=== PATIENT | male | born 1980 | race American Indian/Alaskan Native ===

== ENCOUNTER 2021-08-26 02:48 | Emergency (ER) | payer SELFPAY ==
--- NOTE | 2021-08-26 07:49 | Emergency Department Report ---
ED Asthma HPI - General Chief Complaint: Adult Asthma Stated Complaint: HEADACHE,CHEST PAIN Time Seen by Provider: 08/26/21 07:41 Source: patient Mode of arrival: Ambulatory Limitations: No Limitations - History of Present Illness Initial Comments: 41-year-old male who reports a past medical history of asthma and schizophrenia presents to the ER today with concern that his asthma is flaring up. Patient states that he has been out of his halo for a while. He reports nonproductive cough. He reports subjective fever. He denies any wheezing, shortness of breath, rhinorrhea, or nasal congestion. He stated complaint mentioned headache and chest pain but patient denies any pain currently. He states that his never been admitted for his asthma in the past. Patient states that he just wants a refill on his albuterol inhaler so he can go home and sleep. MD Complaint: "asthma attack" -: days(s) - Related Data Previous Rx's Medication Instructions Recorded Last Taken Type Albuterol Mdi (or & Nicu Only) 2 puff IH QID PRN #8.5 gram 08/26/21 Unknown Rx [ProAir HFA Inhaler] Allergies Allergy/AdvReac Type Severity Reaction Status Date / Time No Known Allergies Allergy Verified 08/26/21 05:16 ED Review of Systems ROS: Stated complaint: HEADACHE,CHEST PAIN Other details as noted in HPI Comment: All other systems reviewed and negative Constitutional: fever (Subjective) Eyes: denies: eye pain, eye discharge, vision change ENT: as per HPI Respiratory: cough. denies: shortness of breath, SOB with exertion, SOB at rest, wheezing Cardiovascular: denies: chest pain, palpitations, dyspnea on exertion, edema, syncope, paroxysmal nocturnal dyspnea Gastrointestinal: denies: abdominal pain, nausea, diarrhea Genitourinary: denies: urgency, dysuria, frequency, hematuria, discharge, testicular pain, testicular mass Musculoskeletal: denies: back pain, joint swelling, arthralgia Skin: denies: rash, lesions, change in color, change in hair/nails, pruritus Neurological: denies: headache, weakness, numbness, paresthesias, confusion, abnormal gait, vertigo Psychiatric: denies: anxiety, depression, auditory hallucinations, visual hallucinations, homicidal thoughts, suicidal thoughts Hematological/Lymphatic: denies: easy bleeding, easy bruising, swollen glands ED Past Medical Hx - Past Medical History Hx Asthma: Yes - Surgical History Past Surgical History?: No - Medications Home Medications: Home Medications Medication Instructions Recorded Confirmed Last Taken Type Albuterol Mdi (or & Nicu Only) 2 puff IH QID PRN #8.5 gram 08/26/21 Unknown Rx [ProAir HFA Inhaler] ED Physical Exam - General Limitations: No Limitations General appearance: alert, in no apparent distress - Head Head exam: Present: atraumatic, normocephalic, normal inspection - Eye Eye exam: Present: normal appearance, PERRL, EOMI Pupils: Present: normal accommodation - Neck Neck exam: Present: normal inspection, full ROM. Absent: meningismus - Respiratory Respiratory exam: Present: normal lung sounds bilaterally. Absent: respiratory distress, wheezes, rales, rhonchi - Cardiovascular Cardiovascular Exam: Present: regular rate, normal rhythm, normal heart sounds - GI/Abdominal GI/Abdominal exam: Present: soft. Absent: distended, tenderness, guarding, rebound - Neurological Exam Neurological exam: Present: alert, oriented X3, CN II-XII intact - Psychiatric Psychiatric exam: Present: normal mood, flat affect - Skin Skin exam: Present: intact ED Course Vital Signs 08/26/21 05:16 Temperature 98.7 F Pulse Rate 103 H Respiratory 17 Rate Blood Pressure 117/59 [Right] O2 Sat by Pulse 100 Oximetry ED Medical Decision Making - Medical Decision Making 41-year-old male who reports a past medical history of asthma and schizophrenia presents to the ER today with concern that his asthma is flaring up. Patient states that he has been out of his halo for a while. He reports nonproductive cough. He reports subjective fever. He denies any wheezing, shortness of breath, rhinorrhea, or nasal congestion. He stated complaint mentioned headache and chest pain but patient denies any pain currently. He states that his never been admitted for his asthma in the past. Patient states that he just wants a refill on his albuterol inhaler so he can go home and sleep. 0758: Patient is well-appearing, nontoxic and not in any acute pain or respiratory distress. His chest is clear to auscultation. He is neurologically intact with a normal gait. He is hemodynamically stable. His vital signs are stable. Patient will be given a refill on his albuterol MDI. Recommend that he stop smoking. Patient will be given referral information to PCP. Patient expressed understanding of all instructions and agree with plan. Patient stable at time of discharge. Critical care attestation.: If time is entered above; I have spent that time in minutes in the direct care of this critically ill patient, excluding procedure time. ED Disposition Clinical Impression: Asthma, Medication refill Disposition: HOME / SELF CARE / HOMELESS Is pt being admited?: No Does the pt Need Aspirin: No Condition: Stable Instructions: Asthma, Adult, Asthma (ED) Additional Instructions: I recommend that you try to stop smoking. Use your albuterol inhaler as prescribed. Follow-up with your primary care doctor. Return to the ER symptoms worsens or changes in any way. Prescriptions: Albuterol Mdi (or & Nicu Only) [ProAir HFA Inhaler] 2 puff IH QID PRN #8.5 gram PRN Reason: Shortness Of Breath Referrals: [facility] [Provider Group] - 3-5 Days Time of Disposition: 07:54
[2021-08-26 08:18] VITALS: BP 111/66
== END 2021-08-26 08:18 | disposition home or self-care (01) ==
LOC: ED 02:48
DX: J45.909 Unspecified asthma, uncomplicated (principal)
CPT/HCPCS: 99282

== ENCOUNTER 2021-09-05 05:28 | Emergency (ER) | payer MEDICAID ==
[2021-09-05 05:36] VITALS: BP 115/71
== END 2021-09-05 19:16 | disposition left against medical advice (07) ==
LOC: ED 05:28
DX: R07.9 Chest pain, unspecified (principal); Z53.21 Procedure and treatment not carried out due to patient leaving prior to being seen by health care provider

== ENCOUNTER 2021-09-09 21:25 | Emergency (ER) | payer SELFPAY ==
[2021-09-10] MEDS ORDERED: ACETAMINOPHEN 500 MG TAB PO ONE (03:22)
--- NOTE | 2021-09-10 03:45 | Emergency Department Report ---
ED General Adult HPI - General Chief complaint: Medical Clearance Stated complaint: medical Source: EMS Mode of arrival: Stretcher Limitations: No Limitations - History of Present Illness Initial comments: Patient is a 41-year-old -[place] male with a history of asthma and who is homeless, and who presented to the ED with complaint of headache for the last 8 hours. Patient states that he has not taken any medication for the headache. Patient denies head or neck injuries, dizziness, syncope, fever, chills, cough, nasal and sinus congestion, change in vision, nausea and vomiting, abdominal pain, chest pain or shortness of breath. MD Complaint: headache -: Sudden, hour(s) (8) Location: head Radiation: non-radiation Severity scale (0 -10): 1 Quality: dull Consistency: constant Improves with: none Worsens with: none Associated Symptoms: denies other symptoms, headaches. denies: confusion, chest pain, cough, diaphoresis, fever/chills, loss of appetite, malaise, nausea/vomiting, rash, seizure, shortness of breath, syncope, weakness Treatments Prior to Arrival: none - Related Data Previous Rx's Medication Instructions Recorded Last Taken Type Albuterol Mdi (or & Nicu Only) 2 puff IH QID PRN #8.5 gram 08/26/21 Unknown Rx [ProAir HFA Inhaler] Ibuprofen [Motrin] 600 mg PO Q8H PRN #20 tablet 09/10/21 Unknown Rx Allergies Allergy/AdvReac Type Severity Reaction Status Date / Time No Known Allergies Allergy Verified 08/26/21 05:16 ED Review of Systems ROS: Stated complaint: medical Other details as noted in HPI Constitutional: denies: chills, fever Eyes: denies: eye pain, eye discharge, vision change ENT: denies: ear pain, throat pain Respiratory: denies: cough, shortness of breath, wheezing Cardiovascular: denies: chest pain, palpitations Endocrine: no symptoms reported Gastrointestinal: denies: abdominal pain, nausea, diarrhea Genitourinary: denies: urgency, dysuria Musculoskeletal: denies: back pain, joint swelling, arthralgia Skin: denies: rash, lesions Neurological: headache. denies: weakness, paresthesias Psychiatric: denies: anxiety, depression Hematological/Lymphatic: denies: easy bleeding, easy bruising ED Past Medical Hx - Past Medical History Hx Asthma: Yes - Medications Home Medications: Home Medications Medication Instructions Recorded Confirmed Last Taken Type Albuterol Mdi (or & Nicu Only) 2 puff IH QID PRN #8.5 gram 08/26/21 Unknown Rx [ProAir HFA Inhaler] Ibuprofen [Motrin] 600 mg PO Q8H PRN #20 tablet 09/10/21 Unknown Rx ED Physical Exam - General Limitations: No Limitations General appearance: alert, in no apparent distress - Head Head exam: Present: atraumatic, normocephalic, normal inspection - Eye Eye exam: Present: normal appearance, PERRL, EOMI Pupils: Present: normal accommodation - ENT ENT exam: Present: normal exam, normal orophraynx, mucous membranes moist, TM's normal bilaterally, normal external ear exam - Neck Neck exam: Present: normal inspection, full ROM - Respiratory Respiratory exam: Present: normal lung sounds bilaterally. Absent: respiratory distress, wheezes, rales, rhonchi, chest wall tenderness, accessory muscle use, decreased breath sounds, prolonged expiratory - Cardiovascular Cardiovascular Exam: Present: regular rate, normal rhythm, normal heart sounds. Absent: systolic murmur, diastolic murmur, rubs, gallop - GI/Abdominal GI/Abdominal exam: Present: soft, normal bowel sounds. Absent: tenderness, guarding, rebound, hyperactive bowel sounds, hypoactive bowel sounds, organomegaly - Extremities Exam Extremities exam: Present: normal inspection, full ROM, normal capillary refill - Back Exam Back exam: Present: normal inspection, full ROM. Absent: tenderness, CVA tenderness (R), CVA tenderness (L), muscle spasm, paraspinal tenderness, vertebral tenderness - Neurological Exam Neurological exam: Present: alert, oriented X3, CN II-XII intact, normal gait, reflexes normal - Psychiatric Psychiatric exam: Present: normal affect, normal mood - Skin Skin exam: Present: warm, dry, intact, normal color. Absent: rash ED Course Vital Signs 09/09/21 21:25 Temperature 98.9 F Pulse Rate 99 H Respiratory 18 Rate Blood Pressure 140/81 [Right] O2 Sat by Pulse 100 Oximetry ED Medical Decision Making - Medical Decision Making This is a 41-year-old -[place] male with a history of asthma and who is homeless, and who presented to the ED with complaint of headache for the last 8 hours. Patient states that he has not taken any medication for the headache. In the ED, patient is alert and oriented x3 and is not in any distress. Patient is hemodynamically stable. Patient was treated in the ED for headache with Tylenol. On reevaluation, patient's headache is resolved. Patient was discharged home and advised to follow-up with his primary care physician in 7 to 10 days for reevaluation or return to the ED immediately if symptoms get worse. - Differential Diagnosis Tension headache; cluster headache; anxiety; insomnia Critical care attestation.: If time is entered above; I have spent that time in minutes in the direct care of this critically ill patient, excluding procedure time. ED Disposition Clinical Impression: Tension headache Disposition: 01 HOME / SELF CARE / HOMELESS Is pt being admited?: No Does the pt Need Aspirin: No Condition: Stable Instructions: Tension Headache, Adult, [id number] Additional Instructions: Follow-up with your primary care physician as needed. Return to the ED immediately if symptoms get worse. Prescriptions: Ibuprofen [Motrin] 600 mg PO Q8H PRN #20 tablet PRN Reason: Pain Referrals: [facility] [Provider Group] - 3-5 Days Time of Disposition: 03:45 Print Language: ROMANIAN
[2021-09-10 04:58] VITALS: BP 136/78
== END 2021-09-10 04:58 | disposition home or self-care (01) ==
LOC: ED 21:25
DX: G44.209 Tension-type headache, unspecified, not intractable (principal); J45.909 Unspecified asthma, uncomplicated
CPT/HCPCS: 99283

== ENCOUNTER 2021-09-16 12:50 | Inpatient (IN) | payer OTHER ==
[~2021-09-16 12:50] MED LIST: LORazepam 2 MG/ML VIAL IV ONE
[2021-09-16] MEDS ORDERED: LORazepam 2 MG/ML VIAL ONE ×3 (12:53→16:05)
[2021-09-16] MEDS ORDERED: LORazepam 2 MG/ML VIAL IV ONE ×2 (13:02→16:18)
[2021-09-16] MEDS ORDERED: FOSPHENYTOIN 500 MG PE/10 ML INJ IV ONE (13:05)
[2021-09-16] MEDS ORDERED: SODIUM CHLORIDE 0.9% 1000 ML 1,000 ML IV ONE ×3 (13:06→21:36)
[2021-09-16] MEDS ORDERED: SUCCINYLCHOLINE CHLORIDE 200 MG/10 ML INJ MDV ONE (13:13)
[2021-09-16] MEDS ORDERED: ETOMIDATE 20 MG/10 ML INJ IV ONE (13:13)
[2021-09-16] MEDS ORDERED: LIP THERAPY VASELINE TP PRN (13:23)
[2021-09-16] MEDS ORDERED: MINERAL OIL/PETROLATUM, WHITE OPHTH OINT 3.5 GM OU PRN (13:23)
--- NOTE | 2021-09-16 13:28 | Emergency Department Report ---
HPI - General Chief Complaint: Seizure Time Seen by Provider: 09/16/21 13:05 - HPI HPI: 41-year-old -[place] male presents to the emergency department via EMS from long-term after having witnessed seizures. The patient had multiple witnessed seizures at the long-term and was given 20 mg of Valium. He had another seizure in route with EMS and received 2 mg of Ativan intranasally. The patient once again began having witnessed seizures upon presentation to our emergency department. Patient was seen here about 6 days ago with a complaint of a headache and the report from that day says that he has a past medical history of asthma. He was ultimately discharged with the diagnosis of a tension headache. EMS says that it was unknown if the patient had any trauma before incarceration or in long-term, but they noticed some bruising to the forehead. I am not sure that we have the full scope of the patient's past medical history as he has a scar in his neck showing previous tracheostomy and also a healed wound to the abdomen that appears consistent with a previous PEG tube. This patient had multiple recurrent seizures while in the emergency department. He received 2 different doses of 2 mg of Ativan, and a gram of Keppra. His oxygen saturation has remained at about 92% while on a nonrebreather but he has tachypnea and accessory muscle use and a low GCS. The patient has been intubated for protection of airway. ED Past Medical Hx - Past Medical History Hx Asthma: Yes - Medications Home Medications: Home Medications Medication Instructions Recorded Confirmed Last Taken Type Albuterol Mdi (or & Nicu Only) 2 puff IH QID PRN #8.5 gram 08/26/21 Unknown Rx [ProAir HFA Inhaler] Ibuprofen [Motrin] 600 mg PO Q8H PRN #20 tablet 09/10/21 Unknown Rx ED Review of Systems ROS: Stated complaint: SEIZURES Other details as noted in HPI Comment: Unobtainable due to pts medical conditions Physical Exam - Physical Exam Physical Exam: GENERAL: The patient is ill-appearing and unresponsive. Patient is seen having recurrent seizure-like activity. HENT: Normocephalic. Atraumatic. Patient has moist mucous membranes. EYES: Pupils are round and equal bilaterally. NECK: Supple. Trachea is midline. CHEST/LUNGS: Clear to auscultation. There is shallow respirations with bradypnea. HEART/CARDIOVASCULAR: Regular. There is moderate to severe tachycardia. There is no murmur. ABDOMEN: Abdomen is soft, nontender. Patient has normal bowel sounds. There is no abdominal distention. SKIN: Skin is warm and dry. NEURO: Patient is mostly unresponsive except to painful stimuli. Nonverbal. Not following commands. The patient is seen having recurrent seizure-like activity. MUSCULOSKELETAL: There is no obvious deformity. - ABG Interpretation Ph: 7.311 PCO2: 34 PO2: 97 Bicarbonate: 16.8 Interpretation: respiratory alkalosis, metabolic acidosis - Central Line Placement Right Femoral Consent Obtained: emergent situation Time Out Performed: Yes Patient Placed on Monitor/Pulse Ox: Yes MD Prep: mask, gown, gloves Central Line Prep: Chlorhexidine scrub Ultrasound Used for Placement: Yes Central Line Lumen Inserted: triple Reason for Insertion: Emergency Venous Access Bloods Obtained for Lab: Yes Central Line Position: good blood return, all ports aspirated, flus, sutured in place with nyl Dressing Applied: Tegaderm Patient Tolerated Procedure: well Complications: none - Intubation Time Out Performed: Yes Sedative: Etomidate Mg Given: 20 Paralytic: Succinylcholine Mg Given: 80 Laryngoscope: other (Loami scope) Size: 4 ET Tube Size: 7.5 Tube Secured Depth (cm): 24 Tube Secured Location: lips Tube Placement Confirmation: visualized tube passing t, equal breath sounds bilat, no breath sounds over epi, confirmation by capnometr Patient Tolerated Procedure: well Intubation Complications: none - Lumbar Puncture Consent Obtained: emergent situation Time Out Performed: Yes Indication for Procedure: fever work up, change in mental status Patient Position: left lateral decubitus Local Anesthetic Used: Lidocaine 1% Spinal Needle Gauge: 20G Spinal Needle Length: 2in Interspace Used: L3-L4 Fluid Initially Obtained: clear Patient Tolerated Procedure: well Additional Comments: A few attempts were made in the L4-L5 space without success. I was unsuccessful in the L3-L4 space. The needle was removed and a Band-Aid was placed. The patient has been placed on his back. ED Medical Decision Making - Lab Data Result diagrams: 09/16/21 13:58 09/16/21 13:58 Lab Results 09/16/21 09/16/21 09/16/21 Range/Units 13:44 13:58 13:58 WBC 17.0 H (4.5-11.0) K/mm3 RBC 4.89 (3.65-5.03) M/mm3 Hgb 14.5 (11.8-15.2) gm/dl Hct 45.6 (35.5-45.6) % MCV 93 (84-94) fl MCH 30 (28-32) pg MCHC 32 (32-34) % RDW 13.1 L (13.2-15.2) % Plt Count 168 (140-440) K/mm3 Lymph % (Auto) 3.7 L (13.4-35.0) % Power % (Auto) 7.6 H (0.0-7.3) % Eos % (Auto) 0.0 (0.0-4.3) % Baso % (Auto) 0.1 (0.0-1.8) % Lymph # (Auto) 0.6 L (1.2-5.4) K/mm3 Power # (Auto) 1.3 H (0.0-0.8) K/mm3 Eos # (Auto) 0.0 (0.0-0.4) K/mm3 Baso # (Auto) 0.0 (0.0-0.1) K/mm3 Seg Neutrophils % 88.6 H (40.0-70.0) % Seg Neutrophils # 15.0 H (1.8-7.7) K/mm3 Sodium 149 H (137-145) mmol/L Potassium 4.8 (3.6-5.0) mmol/L Chloride 108.9 H (98-107) mmol/L Carbon Dioxide 13 L (22-30) mmol/L Anion Gap 32 mmol/L BUN 44 H (9-20) mg/dL Creatinine 1.7 H (0.8-1.3) mg/dL Estimated GFR 54 ml/min BUN/Creatinine Ratio 26 % Glucose 100 (75-100) mg/dL POC Glucose 86 (70-105) mg/dL Lactic Acid (0.7-2.0) mmol/L Calcium 9.5 (8.4-10.2) mg/dL Total Bilirubin 1.00 (0.1-1.2) mg/dL AST 66 H (5-40) units/L ALT 37 (7-56) units/L Alkaline Phosphatase 85 (35-129) units/L Ammonia (25-60) umol/L Total Creatine Kinase 2443 H (55-170) units/L Troponin T < 0.010 (0.00-0.029) ng/mL Total Protein 7.8 (6.3-8.2) g/dL Albumin 4.3 (3.9-5) g/dL Albumin/Globulin Ratio 1.2 % TSH (0.270-4.200) mlU/mL Salicylates (2.8-20.0) mg/dL Acetaminophen (10.0-30.0) ug/mL Plasma/Serum Alcohol (0-0.07) % 09/16/21 09/16/21 09/16/21 Range/Units 13:58 13:58 13:58 WBC (4.5-11.0) K/mm3 RBC (3.65-5.03) M/mm3 Hgb (11.8-15.2) gm/dl Hct (35.5-45.6) % MCV (84-94) fl MCH (28-32) pg MCHC (32-34) % RDW (13.2-15.2) % Plt Count (140-440) K/mm3 Lymph % (Auto) (13.4-35.0) % Power % (Auto) (0.0-7.3) % Eos % (Auto) (0.0-4.3) % Baso % (Auto) (0.0-1.8) % Lymph # (Auto) (1.2-5.4) K/mm3 Power # (Auto) (0.0-0.8) K/mm3 Eos # (Auto) (0.0-0.4) K/mm3 Baso # (Auto) (0.0-0.1) K/mm3 Seg Neutrophils % (40.0-70.0) % Seg Neutrophils # (1.8-7.7) K/mm3 Sodium (137-145) mmol/L Potassium (3.6-5.0) mmol/L Chloride (98-107) mmol/L Carbon Dioxide (22-30) mmol/L Anion Gap mmol/L BUN (9-20) mg/dL Creatinine (0.8-1.3) mg/dL Estimated GFR ml/min BUN/Creatinine Ratio % Glucose (75-100) mg/dL POC Glucose (70-105) mg/dL Lactic Acid (0.7-2.0) mmol/L Calcium (8.4-10.2) mg/dL Total Bilirubin (0.1-1.2) mg/dL AST (5-40) units/L ALT (7-56) units/L Alkaline Phosphatase (35-129) units/L Ammonia 22.0 L (25-60) umol/L Total Creatine Kinase (55-170) units/L Troponin T (0.00-0.029) ng/mL Total Protein (6.3-8.2) g/dL Albumin (3.9-5) g/dL Albumin/Globulin Ratio % TSH 0.062 L (0.270-4.200) mlU/mL Salicylates < 0.3 L (2.8-20.0) mg/dL Acetaminophen (10.0-30.0) ug/mL Plasma/Serum Alcohol (0-0.07) % 09/16/21 09/16/21 09/16/21 Range/Units 13:58 13:58 13:58 WBC (4.5-11.0) K/mm3 RBC (3.65-5.03) M/mm3 Hgb (11.8-15.2) gm/dl Hct (35.5-45.6) % MCV (84-94) fl MCH (28-32) pg MCHC (32-34) % RDW (13.2-15.2) % Plt Count (140-440) K/mm3 Lymph % (Auto) (13.4-35.0) % Power % (Auto) (0.0-7.3) % Eos % (Auto) (0.0-4.3) % Baso % (Auto) (0.0-1.8) % Lymph # (Auto) (1.2-5.4) K/mm3 Power # (Auto) (0.0-0.8) K/mm3 Eos # (Auto) (0.0-0.4) K/mm3 Baso # (Auto) (0.0-0.1) K/mm3 Seg Neutrophils % (40.0-70.0) % Seg Neutrophils # (1.8-7.7) K/mm3 Sodium (137-145) mmol/L Potassium (3.6-5.0) mmol/L Chloride (98-107) mmol/L Carbon Dioxide (22-30) mmol/L Anion Gap mmol/L BUN (9-20) mg/dL Creatinine (0.8-1.3) mg/dL Estimated GFR ml/min BUN/Creatinine Ratio % Glucose (75-100) mg/dL POC Glucose (70-105) mg/dL Lactic Acid 2.20 H* (0.7-2.0) mmol/L Calcium (8.4-10.2) mg/dL Total Bilirubin (0.1-1.2) mg/dL AST (5-40) units/L ALT (7-56) units/L Alkaline Phosphatase (35-129) units/L Ammonia (25-60) umol/L Total Creatine Kinase (55-170) units/L Troponin T (0.00-0.029) ng/mL Total Protein (6.3-8.2) g/dL Albumin (3.9-5) g/dL Albumin/Globulin Ratio % TSH (0.270-4.200) mlU/mL Salicylates (2.8-20.0) mg/dL Acetaminophen 5.0 L (10.0-30.0) ug/mL Plasma/Serum Alcohol < 0.01 (0-0.07) % - EKG Data -: EKG Interpreted by Me EKG shows normal: sinus rhythm, axis (Left axis deviation), intervals, QRS complexes, ST-T waves Rate: tachycardia (134 bpm) - EKG Data When compared to previous EKG there are: previous EKG unavailable Interpretation: other (Sinus tachycardia 134 bpm, left axis deviation. No ST elevation HI) - Radiology Data Radiology results: report reviewed, image reviewed interpreted by me: Chest x-ray does not show any acute process. There are no pleural effusions, obvious pneumonia and there is no pneumothorax. CT CERVICAL SPINE: 09/16/2021 INDICATION / CLINICAL INFORMATION: Trauma. COMPARISON: None available. FINDINGS: CT images of the cervical spine were obtained. Images are evaluated in the axial, coronal, and sagittal planes. There is no evidence of acute traumatic injury. There is mild reversal of cervical lordosis centered at the C4-5 level with the patient positioned for this exam. body alignment is otherwise unremarkable. Patient is noted to have an endotracheal tube and nasogastric tube present. The cervical position is unremarkable. The distal tip of these tubes is not included on this exam. CRANIOCERVICAL JUNCTION: Unremarkable. PARASPINAL STRUCTURES: Unremarkable IMPRESSION: No acute abnormality FACIAL CT 09/16/2021 HISTORY: Trauma. FINDINGS: CT images of the facial bones were obtained. Images are evaluated in the axial, coronal, and sagittal plane. There is no evidence of acute osseous abnormality. There is mucosal thickening and layering secretions in the left maxillary sinus. There is prominent mucosal thickening and secretions in the posterior nasopharynx, which appears to be obstructed. Endotracheal tube and nasogastric tube are in place. Right frontal bone and supraorbital postoperative changes are present. IMPRESSION: No evidence of acute osseous injury. CT BRAIN: 09/16/2021 INDICATION / CLINICAL INFORMATION: Trauma. COMPARISON: None available. FINDINGS: BRAIN/INTRACRANIAL STRUCTURES: Unenhanced CT images of the brain were obtained. No previous studies are available here for comparison. There is no evidence of acute abnormality. There is evidence of prior right frontal surgery, with postoperative changes present in the right frontal and supraorbital calvarium, with associated prominent encephalomalacia in the right frontal lobe. A right frontal shunt tube is present. Lateral and third ventricles are somewhat prominent in size. There is no evidence of acute traumatic injury. There is no evidence of hemorrhage. There are no abnormal extra-axial fluid collections. - Medical Decision Making This patient had somewhat to seizure-like activity in long-term. He was given 20 mg of Valium without resolution of the seizures. EMS then witnessed him having 1-2 seizures in route. Upon presentation patient continued to have short but recurrent seizure-like activity. He was given 2 mg of Ativan with EMS. He then received a total of 4 mg of Ativan in the emergency department, followed by a gram of Keppra, before the seizure started to slow down. He had a significant postictal period with a GCS of 7, and shallow bradypnea respirations. For this reason the patient was intubated as per the procedure section. Shortly after the patient was intubated, I placed a central line as we did not have very good peripheral IV access and the patient was going to receive multiple medications and require multiple blood draws. This was done without any significant complications as per the procedure section. CT scan of the head without contrast shows ventriculomegaly, but otherwise no hemorrhage, large vessel occlusion, extra-axial fluid collection, or any acute process. CT scan of the cervical spine did not show any fracture, subluxation, or any acute process. CT of the facial bones did not show any fracture, dislocation, or any acute process. Chest x-ray does not show any pneumonia, pleural effusions, pneumothorax, widened mediastinum, or any other acute process. Labs show a leukocytosis of 17,000, lactic acidosis, hypernatremia, mild renal insufficiency, dehydration, mild rhabdomyolysis, and elevated inflammatory markers concerning for COVID-19 infection. This patient was here 1 time previously, about 10 days ago, for a tension headache. He was awake, alert, oriented at that time and did not have any known history of seizures. He presented with a low-grade fever of 100.7. For this reason, along with the leukocytosis, a lumbar puncture was performed. It was negative for cryptococcus. Cell count could still show a viral meningitis, but it does not appear consistent with a bacterial meningitis. CSF culture preliminarily does not show any organisms. Prior to the LP, the patient was empirically treated with ceftriaxone, vancomycin. Patient had 1 more episode of seizures while in the emergency department and he was given another dose of Ativan and fosphenytoin. Patient will be admitted to the hospital for further evaluation and treatment and was accepted for admission by the hospitalist, Dr. Doan. Critical Care Time: Yes Critical care time in (mins) excluding proc time.: 50 Critical care attestation.: If time is entered above; I have spent that time in minutes in the direct care of this critically ill patient, excluding procedure time. Critical care time was spent on this patient in doing his initial evaluation, multiple re evaluations, ordering and interpretation of labs and imaging, empiric antibiotics, IV fluid resuscitation. This does not include the time doing the intubation, lumbar puncture or central line procedures. Critical Care Time: 50 minutes ED Disposition Clinical Impression: Status epilepticus, Mild renal insufficiency, SIRS (systemic inflammatory response syndrome) Leukocytosis Qualifiers: Leukocytosis type: unspecified Qualified Code(s): D72.829 - Elevated white blood cell count, unspecified Acute respiratory failure Qualifiers: Respiratory failure complication: unspecified whether with hypoxia or hypercapnia Qualified Code(s): J96.00 - Acute respiratory failure, unspecified whether with hypoxia or hypercapnia Disposition: 09 ADMITTED INPATIENT Is pt being admited?: Yes Condition: Critical Time of Disposition: 15:39
[2021-09-16] MEDS ORDERED: ROCURONIUM 50 MG/5 ML INJ IV ONE ×2 (13:33→13:34)
[2021-09-16] MEDS ORDERED: cefTRIAXone/NS 2 GM/100 ML 2 GM/100 ML BAG IV ONE ×2 (13:34→17:00)
--- NOTE | 2021-09-16 13:54 | XRay Report ---
XR chest 1V ap INDICATION / CLINICAL INFORMATION: Trauma. COMPARISON: None available. FINDINGS: SUPPORT DEVICES: Endotracheal tube terminates appropriately at the level of the clavicular heads. En teric tube courses beneath the diaphragm. Right DIRECTOR [employer] QUALITY shunt catheter courses along the right chest wall. It is slightly kinked along the right hemidiaphragm no definite discontinuity. HEART / MEDIASTINUM: Normal. LUNGS / PLEURA: Lungs are clear. Costophrenic sulci are sharp No pneumothorax. ADDITIONAL FINDINGS: No significant additional findings. IMPRESSION: 1. Support devices in appropriate positioning. Signer Name: Trey Gonzalez MD Signed: 09/16/2021 1:50 PM Workstation Name: [id number]
[2021-09-16] MEDS ORDERED: FOSPHENYTOIN IV ONE (14:00)
[2021-09-16] MEDS ORDERED: [UNRECOGNIZED DRUG - OTHER] IV ONE (14:00)
[2021-09-16] MEDS ORDERED: SODIUM CHLORIDE IV ONE (14:00)
[2021-09-16] MEDS ORDERED: VANCOMYCIN 1,250 MG in SODIUM CHLORIDE 0.9% 500 ML 250 ML IV ONE (14:30)
[2021-09-16 14:33] LABS: Basophils % (Auto) 0.1 % (0.0-1.8); Hematocrit 45.6 % (35.5-45.6); Hemoglobin 14.5 gm/dl (11.8-15.2); Lymphocytes # (Auto) 0.6 K/mm3 (1.2-5.4); Lymphocytes % (Auto) 3.7 % (13.4-35.0); Mean Corpuscular HGB Conc 32 % (32-34); Mean Corpuscular Volume 93 fl (84-94); Monocytes # (Auto) 1.3 K/mm3 (0.0-0.8); Monocytes % (Auto) 7.6 % (0.0-7.3); Red Blood Count 4.89 M/mm3 (3.65-5.03); Red Cell Distribution Width 13.1 % (13.2-15.2)
--- NOTE | 2021-09-16 14:51 | Cat Scan Report ---
CT BRAIN: 09/16/2021 INDICATION / CLINICAL INFORMATION: Trauma. COMPARISON: None available. FINDINGS: BRAIN/INTRACRANIAL STRUCTURES: Unenhanced CT images of the brain were obtained. No previous studies a re available here for comparison. There is no evidence of acute abnormality. There is evidence of prior right frontal surgery, with pos toperative changes present in the right frontal and supraorbital calvarium, with associated prominent encephalomalacia in the right frontal lobe. A right frontal shunt tube is present. Lateral and third ventricles are somewhat prominent in size. There is no evidence of acute traumatic injury. There is no evidence of hemorrhage. There are no abno rmal extra-axial fluid collections. EXTRACRANIAL STRUCTURES: Unremarkable. IMPRESSION: No evidence of acute abnormality. Postoperative changes and ventriculomegaly as described above. Comparison with any prior studies woul d be helpful to assess for the stability of these changes and the ventricular size. All CT scans at this location are performed using dose reduction to ALARA by means of automated expos ure control. Signer Name: Dejon Miller MD Signed: 09/16/2021 2:47 PM Workstation Name: [id number]
--- NOTE | 2021-09-16 14:53 | Cat Scan Report ---
CT CERVICAL SPINE: 09/16/2021 INDICATION / CLINICAL INFORMATION: Trauma. COMPARISON: None available. FINDINGS: CT images of the cervical spine were obtained. Images are evaluated in the axial, coronal, and sagitt al planes. There is no evidence of acute traumatic injury. There is mild reversal of cervical lordosis centered at the C4-5 level with the patient positioned fo r this exam. body alignment is otherwise unremarkable. Patient is noted to have an endotracheal tube and nasogastric tube present. The cervical position is unremarkable. The distal tip of these tubes is not included on this exam. CRANIOCERVICAL JUNCTION: Unremarkable. PARASPINAL STRUCTURES: Unremarkable IMPRESSION: No acute abnormality All CT scans at this location are performed using dose reduction to ALARA by means of automated expos ure control. Signer Name: Dejon Miller MD Signed: 09/16/2021 2:49 PM Workstation Name: [id number]
--- NOTE | 2021-09-16 14:55 | Cat Scan Report ---
FACIAL CT 09/16/2021 HISTORY: Trauma. FINDINGS: CT images of the facial bones were obtained. Images are evaluated in the axial, coronal, an d sagittal plane. There is no evidence of acute osseous abnormality. There is mucosal thickening and layering secretions in the left maxillary sinus. There is prominent m ucosal thickening and secretions in the posterior nasopharynx, which appears to be obstructed. Endotr acheal tube and nasogastric tube are in place. Right frontal bone and supraorbital postoperative changes are present. IMPRESSION: No evidence of acute osseous injury. All CT scans at this location are performed using dose reduction to ALARA by means of automated expos ure control. Signer Name: Dejon Miller MD Signed: 09/16/2021 2:50 PM Workstation Name: [id number]
[2021-09-16 15:02] LABS: Platelet Count 168 K/mm3 (140-440)
[2021-09-16 15:21] LABS: Alanine Aminotransferase 37 units/L (7-56); Albumin 4.3 g/dL (3.9-5); BUN/Creatinine Ratio 26; Blood Urea Nitrogen 44 mg/dL (9-20); Calcium 9.5 mg/dL (8.4-10.2); Hemolysis Index 31
[2021-09-16 16:32] LABS: ABG Base Excess -8.4 mmol/L (-2.0-3.0); ABG HCO3 16.8 mmol/L (20.0-26.0); ABG Methemoglobin 0.8 % (0.0-1.5); ABG Oxygen Saturation 97.2 % (95.0-99.0); ABG PCO2 34.1 mm Hg; ABG PH 7.311 pH Units (7.350-7.450); ABG PO2 97.3 mm Hg (80.0-90.0)
[2021-09-16 16:54] LABS: Appearance,CSF Clear
[2021-09-16 17:53] LABS: Total Cells Counted 100 /mm3
[2021-09-16 17:54] LABS: Red Blood Cell,CSF 33 /mm3 (0-0); White Blood Cell,CSF 26 /mm3 (1-10)
[2021-09-16] MEDS ORDERED: ACETAMINOPHEN 650 MG RECT SUPP PR ONE (20:37)
[2021-09-16] MEDS ORDERED: ACETAMINOPHEN 650 MG RECT SUPP PR PRN (21:00)
[2021-09-16] MEDS ORDERED: MORPHINE 2 MG/1 ML INJ IV PRN (22:57)
[2021-09-16] MEDS ORDERED: METOCLOPRAMIDE 10 MG/2 ML INJ IV PRN (22:57)
[2021-09-16] MEDS ORDERED: ONDANSETRON 4 MG/2 ML INJ IV PRN (22:57)
--- NOTE | 2021-09-16 23:08 | History and Physical Report ---
History of Present Illness Date of examination: 09/16/21 Date of admission: 09/16/21 15:39 Chief complaint: Continued seizures since a.m. History of present illness: 41-year-old -[place] male presents to the emergency department after witnessed seizures. In the emergency room patient had multiple seizures. Patient was given 20 mg of Valium in the emergency.. Patient had seizures in with EMS administered 2 mg of Ativan. In the emergency department patient was evaluated multiple seizures because her legs patient was intubated for protection of airway. Patient was seen suggestive of potential headache. And was discharged. Patient had previous tracheostomy and PEG tube. No fever or chills. He received multiple doses of 2 mg of Ativan and a gram of Keppra in the emergency room. Oxygen saturations remained at 92% while on nonrebreather and patient was also tachypneic and accessory musc and low [place] Coma Scale scale. P. Atient was intubated for protection of airway. Patient was sedated with propofol Past History Past Medical History: seizures, other (Asthma) Past Surgical History: Other (Tracheostomy and PEG tube) Social history: full code, other (Patient was incarcerated) Family history: hypertension Medications and Allergies Allergies Allergy/AdvReac Type Severity Reaction Status Date / Time No Known Allergies Allergy Verified 08/26/21 05:16 Home Medications Medication Instructions Recorded Confirmed Last Taken Type Albuterol Mdi (or & Nicu Only) 2 puff IH QID PRN #8.5 gram 08/26/21 Unknown Rx [ProAir HFA Inhaler] Ibuprofen [Motrin] 600 mg PO Q8H PRN #20 tablet 09/10/21 Unknown Rx Active Meds: Active Medications Acetaminophen (Acetaminophen 650 Mg Rect Supp) 650 mg MO Q4H PRN PRN Reason: Pain, Mild (1-3) Last Admin: 09/16/21 21:00 Dose: 650 mg Famotidine (Famotidine 20 Mg/2 Ml Inj) 20 mg IV BID EPIFANIO Hydrophilic Ointment (Lip Therapy Vaseline) 1 applic TP Q2HR PRN PRN Reason: Dry Lips Propofol (Diprivan 10 Mg/Ml) 1,000 mg in 100 mls @ 2.449 mls/hr IV TITR EPIFANIO; Protocol Last Titration: 09/16/21 16:15 Dose: 30 mcg/kg/min, 14.696 mls/hr Multi-Ingred Cream/Lotion/Oil/Oint (Mineral Oil/Petrolatum, White Ophth Oint 3.5 Gm) 1 applic OU Q4HR PRN PRN Reason: Dry Eye(s) Senna/Docusate Sodium (Sennosides/Docusate Sodium 8.6/50 Mg Tab) 1 tab FEEDTUBE BID EPIFANIO Review of Systems ROS unobtainable: due to endotracheal tube Neurological: seizures Exam - Physical Exam Narrative exam: Patient is intubated - Constitutional Vitals: Temp Pulse Resp BP Pulse Ox 100.7 F H 135 H 20 112/73 99 09/16/21 20:41 09/16/21 20:59 09/16/21 20:41 09/16/21 20:59 09/16/21 20:59 General appearance: Present: severe distress, well-nourished - EENT Eyes: Present: PERRL ENT: hearing intact, clear oral mucosa - Neck Neck: Present: supple, normal ROM - Respiratory Respiratory effort: normal Respiratory: bilateral: CTA - Cardiovascular Heart rate: 78 Rhythm: regular Heart Sounds: Present: S1 & S2. Absent: rub, click - Extremities Extremities: pulses symmetrical, No edema Peripheral Pulses: within normal limits - Abdominal General gastrointestinal: Present: soft, non-tender, non-distended, normal bowel sounds Male genitourinary: Present: normal - Integumentary Integumentary: Present: clear, warm, dry - Musculoskeletal Musculoskeletal: generalized weakness - Psychiatric Psychiatric: other (Indurated) - Neurologic Neurologic: CNII-XII intact, moves all extremities HEART Score - HEART Score Troponin: Troponin T < 0.010 ng/mL (0.00-0.029) 09/16/21 13:58 Results - Labs CBC & Chem 7: 09/16/21 13:58 09/16/21 13:58 Labs: Laboratory Last Values WBC 17.0 K/mm3 (4.5-11.0) H 09/16/21 13:58 RBC 4.89 M/mm3 (3.65-5.03) 09/16/21 13:58 Hgb 14.5 gm/dl (11.8-15.2) 09/16/21 13:58 Hct 45.6 % (35.5-45.6) 09/16/21 13:58 MCV 93 fl (84-94) 09/16/21 13:58 MCH 30 pg (28-32) 09/16/21 13:58 MCHC 32 % (32-34) 09/16/21 13:58 RDW 13.1 % (13.2-15.2) L 09/16/21 13:58 Plt Count 168 K/mm3 (140-440) 09/16/21 13:58 Lymph % (Auto) 3.7 % (13.4-35.0) L 09/16/21 13:58 [place] % (Auto) 7.6 % (0.0-7.3) H 09/16/21 13:58 Eos % (Auto) 0.0 % (0.0-4.3) 09/16/21 13:58 Baso % (Auto) 0.1 % (0.0-1.8) 09/16/21 13:58 Lymph # (Auto) 0.6 K/mm3 (1.2-5.4) L 09/16/21 13:58 [place] # (Auto) 1.3 K/mm3 (0.0-0.8) H 09/16/21 13:58 Eos # (Auto) 0.0 K/mm3 (0.0-0.4) 09/16/21 13:58 Baso # (Auto) 0.0 K/mm3 (0.0-0.1) 09/16/21 13:58 Seg Neutrophils % 88.6 % (40.0-70.0) H 09/16/21 13:58 Seg Neutrophils # 15.0 K/mm3 (1.8-7.7) H 09/16/21 13:58 D-Dimer 768.76 ng/mlDDU (0-234) H 09/16/21 18:23 ABG pH 7.311 pH Units (7.350-7.450) L 09/16/21 16:15 ABG pCO2 34.1 mm Hg 09/16/21 16:15 ABG pO2 97.3 mm Hg (80.0-90.0) H 09/16/21 16:15 ABG HCO3 16.8 mmol/L (20.0-26.0) L 09/16/21 16:15 ABG O2 Saturation 97.2 % (95.0-99.0) 09/16/21 16:15 ABG O2 Content 19.3 (0.0-44) 09/16/21 16:15 ABG Base Excess -8.4 mmol/L (-2.0-3.0) L 09/16/21 16:15 ABG Hemoglobin 14.3 gm/dl (14.0-18.0) 09/16/21 16:15 ABG Carboxyhemoglobin 1.2 % (0.0-5.0) 09/16/21 16:15 ABG Methemoglobin 0.8 % (0.0-1.5) 09/16/21 16:15 Oxyhemoglobin 95.3 % (95.0-99.0) 09/16/21 16:15 FiO2 60 % 09/16/21 16:15 Sodium 149 mmol/L (137-145) H 09/16/21 13:58 Potassium 4.8 mmol/L (3.6-5.0) 09/16/21 13:58 Chloride 108.9 mmol/L (98-107) H 09/16/21 13:58 Carbon Dioxide 13 mmol/L (22-30) L 09/16/21 13:58 Anion Gap 32 mmol/L 09/16/21 13:58 BUN 44 mg/dL (9-20) H 09/16/21 13:58 Creatinine 1.7 mg/dL (0.8-1.3) H 09/16/21 13:58 Estimated GFR 54 ml/min 09/16/21 13:58 BUN/Creatinine Ratio 26 % 09/16/21 13:58 Glucose 100 mg/dL (75-100) 09/16/21 13:58 POC Glucose 86 mg/dL (70-105) 09/16/21 13:44 Lactic Acid 1.50 mmol/L (0.7-2.0) 09/16/21 17:47 Calcium 9.5 mg/dL (8.4-10.2) 09/16/21 13:58 Ferritin 230.4 ng/mL (30.0-300.0) 09/16/21 18:23 Total Bilirubin 1.00 mg/dL (0.1-1.2) 09/16/21 13:58 AST 66 units/L (5-40) H 09/16/21 13:58 ALT 37 units/L (7-56) 09/16/21 13:58 Alkaline Phosphatase 85 units/L (35-129) 09/16/21 13:58 Ammonia 22.0 umol/L (25-60) L 09/16/21 13:58 Lactate Dehydrogenase 352 units/L (91-180) H 09/16/21 18:23 Total Creatine Kinase 2443 units/L (55-170) H 09/16/21 13:58 Troponin T < 0.010 ng/mL (0.00-0.029) 09/16/21 13:58 C-Reactive Protein 11.00 mg/dL (0.00-1.30) H 09/16/21 18:23 Total Protein 7.8 g/dL (6.3-8.2) 09/16/21 13:58 Albumin 4.3 g/dL (3.9-5) 09/16/21 13:58 Albumin/Globulin Ratio 1.2 % 09/16/21 13:58 TSH 0.062 mlU/mL (0.270-4.200) L 09/16/21 13:58 Free T4 1.19 ng/dL (0.76-1.46) 09/16/21 17:47 CSF Appearance Clear 09/16/21 16:15 CSF Color Colorless 09/16/21 16:15 CSF WBC 26 /mm3 (1-10) 09/16/21 16:15 CSF RBC 33 /mm3 (0-0) 09/16/21 16:15 CSF Seg Neutrophils 99.0 % (0-6) 09/16/21 16:15 CSF Monocytes % 1.0 % (15-45) 09/16/21 16:15 CSF Pathologist Review C 09/16/21 16:15 CSF Glucose 70 mg/dL 09/16/21 16:15 Salicylates < 0.3 mg/dL (2.8-20.0) L 09/16/21 13:58 Acetaminophen 5.0 ug/mL (10.0-30.0) L 09/16/21 13:58 Plasma/Serum Alcohol < 0.01 % (0-0.07) 09/16/21 13:58 Microbiology: Microbiology 09/16/21 16:15 Cerebral Spinal Fluid Gram Stain - Final 09/16/21 16:15 Cerebral Spinal Fluid CSF Culture - Preliminary 09/16/21 16:15 Cerebral Spinal Fluid Cryptococcal Antigen - Final 09/16/21 13:58 Peripheral/Venous Blood Culture - Preliminary Culture in Progress 09/16/21 13:58 Peripheral/Venous Blood Culture - Preliminary Culture in Progress - Imaging and Cardiology Imaging and Cardiology: Multiple seizures since a.m. head CT No evidence of acute abnormality Postoperative changes and ventriculomegaly as described above There is evidence of prior right frontal surgery with postoperative changes present at function and supraorbital calvarium with associated prominent encephalomalacia in the right frontal lobe. A right frontal shunt tubing is in. There is no evidence of acute traumatic injury. Chest x-ray no acute findings. Facial CT No evidence of acute osseous injury. Assessment and Plan Assessment and plan: Critical care statement The high probability OF a clinically significant sudden or life-threatening deterioration of the cardiorespiratory system and endocrine system required my full and direct attention, intervention and postoperative management. The aggregate critical care time was 40 minutes. The time is in addition to time spent performing reported procedures but includes the followin: Data review and interpretation 2: Patient assessment and monitoring of vital signs 3: Documentation 4:: Medication orders and management Advance Directives: Yes (Full code) - Patient Problems (1) Acute encephalopathy Current Visit: Yes Status: Acute Plan to address problem: Secondary to seizures and a low Glascow coma scale Patient intubated Started on IV Keppra and IV Vimpat and Ativan intermittently (2) Status epilepticus Current Visit: Yes Status: Acute Plan to address problem: Patient started on IV Keppra, IV Vimpat and IV Ativan Neurology consult requested (3) Hypernatremia Current Visit: Yes Status: Acute Plan to address problem: IV fluids at half-normal saline for now (4) KEE (acute kidney injury) Current Visit: Yes Status: Acute Plan to address problem: Secondary to dehydration and vasomotor nephropathy IV fluids initiated (5) Leukocytosis Current Visit: Yes Status: Acute Qualifiers: Leukocytosis type: unspecified Qualified Code(s): D72.829 - Elevated white blood cell count, unspecified Plan to address problem: Demargination On ceftriaxone empirically No signs of meningitis (6) DVT prophylaxis Current Visit: Yes Status: Acute Plan to address problem: On anticoagulation GI prophylaxis (7) Advance care planning Current Visit: Yes Status: Acute (8) Advance care planning Current Visit: Yes Status: Acute Plan to address problem: Patient is full code Because of the patient's condition and no family available disease education could not be conducted care plan could not be discussed diagnosis could not be discussed prognosis could not be discussed. We will try to reach family members regarding and regarding understanding and agreement with care plan.
[2021-09-16] MEDS ORDERED: levETIRAcetam 1000 MG/NS 0.75% 1,000 MG/100 ML BAG IV ONE (23:45)
[2021-09-17] MEDS: FAMOTIDINE 20 MG/2 ML INJ IV SCH ×3 (01:26→22:09)
[2021-09-17] MEDS: SENNOSIDES/DOCUSATE SODIUM 8.6/50 MG TAB FEEDTUBE SCH ×3 (01:26→22:10)
[2021-09-17] MEDS: LACOSAMIDE 200 MG in SODIUM CHLORIDE 0.9% 100 ML IV SCH ×3 (01:27→23:00)
[2021-09-17] MEDS: HEPARIN 5,000 UNIT/1 ML VIAL SUB-Q SCH ×3 (01:29→22:09)
--- NOTE | 2021-09-17 05:09 | XRay Report ---
CHEST - 1 VIEW INDICATION: follow up respiratory failure COMPARISON: Yesterday FINDINGS: SUPPORT DEVICES: Stable support device positioning. HEART: Stable cardiomediastinal silhouette. LUNGS/PLEURA: Clear lungs. ADDITIONAL FINDINGS: None. IMPRESSION: Unchanged exam. Signer Name: Sanchez Cassidy MD Signed: 09/17/2021 5:05 AM Workstation Name: [id number]
--- NOTE | 2021-09-17 09:40 | Consultation ---
History of Present Illness Consult date: 09/17/21 Reason for Consult: recurrent seizure History of present illness: Continued seizures since a.m. History of present illness: 41-year-old -[place] male presents to the emergency department after witnessed seizures. In the emergency room patient had multiple seizures. Patient was given 20 mg of Valium in the emergency.. Patient had seizures in with EMS administered 2 mg of Ativan. In the emergency department patient was evaluated multiple seizures because her legs patient was intubated for protection of airway. Patient was seen in ER on multiple occassion last 09/10 for possible headache and was discharged. Patient had previous tracheostomy and PEG tube. No fever or chills. He received multiple doses of 2 mg of Ativan and a gram of Keppra in the emergency room. Oxygen saturations remained at 92% while on nonrebreather and patient was also tachypneic and accessory musc and low [place] Coma Scale scale. Patient was intubated for protection of airway. Patient was sedated with propofol#[address] brain is unremarkable -D-D#768 -CRP#11 -calcit#2.85 CPK#2443 -LDl#352 Lp is done in ER {WBS#26,Glu#70,RBC#33, Protein is pending as well as gram stain} Past History Past Medical History: seizures, other (Asthma) Past Surgical History: Other (Tracheostomy and PEG tube) Social history: full code, other (Patient was incarcerated) Family history: hypertension Medications and Allergies Allergies Allergy/AdvReac Type Severity Reaction Status Date / Time No Known Allergies Allergy Verified 08/26/21 05:16 Home Medications Medication Instructions Recorded Confirmed Last Taken Type Albuterol Mdi (or & Nicu Only) 2 puff IH QID PRN #8.5 gram 08/26/21 Unknown Rx [ProAir HFA Inhaler] Ibuprofen [Motrin] 600 mg PO Q8H PRN #20 tablet 09/10/21 Unknown Rx Active Meds: Active Medications Acetaminophen (Acetaminophen 650 Mg Rect Supp) 650 mg MT Q4H PRN PRN Reason: Pain, Mild (1-3) Last Admin: 09/16/21 21:00 Dose: 650 mg Famotidine (Famotidine 20 Mg/2 Ml Inj) 20 mg IV BID EPIFANIO Hydrophilic Ointment (Lip Therapy Vaseline) 1 applic TP Q2HR PRN PRN Reason: Dry Lips Propofol (Diprivan 10 Mg/Ml) 1,000 mg in 100 mls @ 2.449 mls/hr IV TITR EPIFANIO; Protocol Last Titration: 09/16/21 16:15 Dose: 30 mcg/kg/min, 14.696 mls/hr Multi-Ingred Cream/Lotion/Oil/Oint (Mineral Oil/Petrolatum, White Ophth Oint 3.5 Gm) 1 applic OU Q4HR PRN PRN Reason: Dry Eye(s) Senna/Docusate Sodium (Sennosides/Docusate Sodium 8.6/50 Mg Tab) 1 tab FEEDTUBE BID EPIFANIO Review of Systems ROS unobtainable: due to endotracheal tube Neurological: seizures Past History Past Medical History: seizures, other (Asthma) Past Surgical History: Other (Tracheostomy and PEG tube) Social history: full code, other (Patient was incarcerated) Family history: hypertension Medications and Allergies Allergies Allergy/AdvReac Type Severity Reaction Status Date / Time No Known Allergies Allergy Verified 08/26/21 05:16 Home Medications Medication Instructions Recorded Confirmed Last Taken Type Albuterol Mdi (or & Nicu Only) 2 puff IH QID PRN #8.5 gram 08/26/21 Unknown Rx [ProAir HFA Inhaler] Ibuprofen [Motrin] 600 mg PO Q8H PRN #20 tablet 09/10/21 Unknown Rx Active Meds: Active Medications Acetaminophen (Acetaminophen 650 Mg Rect Supp) 650 mg MT Q4H PRN PRN Reason: Pain, Mild (1-3) Last Admin: 09/16/21 21:00 Dose: 650 mg Acetaminophen (Acetaminophen 325 Mg Tab) 650 mg PO Q4H PRN PRN Reason: Pain MILD(1-3)/Fever >100.5/CELESTE Famotidine (Famotidine 20 Mg/2 Ml Inj) 20 mg IV BID EPIFANIO Last Admin: 09/17/21 01:26 Dose: 20 mg Heparin Sodium (Porcine) (Heparin 5,000 Unit/1 Ml Vial) 5,000 unit SUB-Q Q12HR EPIFANIO Last Admin: 09/17/21 01:29 Dose: 5,000 unit Hydrophilic Ointment (Lip Therapy Vaseline) 1 applic TP Q2HR PRN PRN Reason: Dry Lips Propofol (Diprivan 10 Mg/Ml) 1,000 mg in 100 mls @ 2.449 mls/hr IV TITR [facility]; Protocol Last Admin: 09/17/21 01:24 Dose: 30 mcg/kg/min, 14.696 mls/hr Levetiracetam 1,000 mg/ (Dextrose) 110 mls @ 400 mls/hr IV Q12HR [facility] Lacosamide 200 mg/ Sodium (Chloride) 120 mls @ 100 mls/hr IV Q12HR [facility] Last Admin: 09/17/21 01:27 Dose: 100 mls/hr Metoclopramide HCl (Metoclopramide 10 Mg/2 Ml Inj) 5 mg IV Q6H PRN PRN Reason: Nausea And Vomiting Morphine Sulfate (Morphine 2 Mg/1 Ml Inj) 2 mg IV Q4H PRN PRN Reason: Pain, Moderate (4-6) Multi-Ingred Cream/Lotion/Oil/Oint (Mineral Oil/Petrolatum, White Ophth Oint 3.5 Gm) 1 applic OU Q4HR PRN PRN Reason: Dry Eye(s) Ondansetron HCl (Ondansetron 4 Mg/2 Ml Inj) 4 mg IV Q8H PRN PRN Reason: Nausea And Vomiting Senna/Docusate Sodium (Sennosides/Docusate Sodium 8.6/50 Mg Tab) 1 tab FEEDTUBE BID [facility] Last Admin: 09/17/21 01:26 Dose: 1 tab Sodium Chloride (Sodium Chloride 0.9% 10 Ml Flush Syringe) 10 ml IV BID [facility] Last Admin: 09/17/21 01:27 Dose: 10 ml Sodium Chloride (Sodium Chloride 0.9% 10 Ml Flush Syringe) 10 ml IV PRN PRN PRN Reason: LINE FLUSH Physical Examination - Vital Signs Vital Signs: Vital Signs Pulse BP Pulse Ox 168 H 149/95 98 09/16/21 13:44 09/16/21 13:44 09/16/21 13:44 - Constitutional General appearance: comfortable - EENT EENT: Present: PERRL, mucous membranes moist - Respiratory Respiratory: Present: chest non-tender, lungs clear, rhonchi - Cardiovascular Cardiovascular: Present: regular rate, normal S1, normal S2 Extremities: Present: no peripheral edema bilatateraly, no clubbing, cyanosis - Gastrointestinal Gastrointestinal: Present: normoactive bowel sounds - Integumentary Integumentary: Present: normal - Neurologic Cranial nerve examination: PERRL, EOMI, intact Speech examination: other (intubated and sedated) Sensorimotor examination: other (pupils 4mm dilted slightly reactive, EMOI, gag is intact. corneal intact ) Detailed motor examination: other (slight withdrawal to pain stimuli) Results - Laboratory Findings CBC and BMP: 09/16/21 13:58 09/16/21 13:58 Abnormal Lab Findings: Abnormal Labs 09/16/21 09/16/21 09/16/21 13:58 13:58 13:58 WBC 17.0 H RDW 13.1 L Lymph % (Auto) 3.7 L [place] % (Auto) 7.6 H Lymph # (Auto) 0.6 L [place] # (Auto) 1.3 H Seg Neutrophils % 88.6 H Seg Neutrophils # 15.0 H D-Dimer ABG pH POC ABG pO2 ABG pO2 ABG HCO3 ABG Base Excess ABG Oxyhemoglobin ABG Chloride ABG Glucose Sodium 149 H Chloride 108.9 H Carbon Dioxide 13 L BUN 44 H Creatinine 1.7 H Lactic Acid AST 66 H Ammonia 22.0 L Lactate Dehydrogenase Total Creatine Kinase 2443 H C-Reactive Protein TSH Arterial Blood Glucose Arterial Blood Ionized Calcium Salicylates Acetaminophen 09/16/21 09/16/21 09/16/21 13:58 13:58 13:58 WBC RDW Lymph % (Auto) [place] % (Auto) Lymph # (Auto) [place] # (Auto) Seg Neutrophils % Seg Neutrophils # D-Dimer ABG pH POC ABG pO2 ABG pO2 ABG HCO3 ABG Base Excess ABG Oxyhemoglobin ABG Chloride ABG Glucose Sodium Chloride Carbon Dioxide BUN Creatinine Lactic Acid AST Ammonia Lactate Dehydrogenase Total Creatine Kinase C-Reactive Protein TSH 0.062 L Arterial Blood Glucose Arterial Blood Ionized Calcium Salicylates < 0.3 L Acetaminophen 5.0 L 09/16/21 09/16/21 09/16/21 13:58 16:15 18:23 WBC RDW Lymph % (Auto) [place] % (Auto) Lymph # (Auto) [place] # (Auto) Seg Neutrophils % Seg Neutrophils # D-Dimer 768.76 H ABG pH 7.311 L POC ABG pO2 ABG pO2 97.3 H ABG HCO3 16.8 L ABG Base Excess -8.4 L ABG Oxyhemoglobin ABG Chloride ABG Glucose Sodium Chloride Carbon Dioxide BUN Creatinine Lactic Acid 2.20 H* AST Ammonia Lactate Dehydrogenase Total Creatine Kinase C-Reactive Protein TSH Arterial Blood Glucose Arterial Blood Ionized Calcium Salicylates Acetaminophen 09/16/21 09/17/21 18:23 05:36 WBC RDW Lymph % (Auto) [place] % (Auto) Lymph # (Auto) [place] # (Auto) Seg Neutrophils % Seg Neutrophils # D-Dimer ABG pH POC ABG pO2 164.9 H ABG pO2 ABG HCO3 ABG Base Excess ABG Oxyhemoglobin 98.5 H ABG Chloride 112.0 H ABG Glucose 111 H Sodium Chloride Carbon Dioxide BUN Creatinine Lactic Acid AST Ammonia Lactate Dehydrogenase 352 H Total Creatine Kinase C-Reactive Protein 11.00 H TSH Arterial Blood Glucose 111 H Arterial Blood Ionized Calcium 4.5 L Salicylates Acetaminophen Assessment and Plan Assessment and Plan Assessment and plan: - Patient Problems # Acute encephalopathy -Secondary to seizures and a low Glascow coma scale r/o infection -Patient intubated -Started on IV Keppra and IV Vimpat and Ativan intermittently -sedated with propofol -LP done wbcs#26 with normal glucose ,gram stain is pending,c/s is pending -need ID -EEG is pending -MRI with gd is pending -seizure precaution # Status epilepticus -Patient started on IV Keppra, IV Vimpat and IV Ativan -MRI with gd brain is pending -CT brain is unremarkable -EEG # Hypernatremia -IV fluids at half-normal saline for now # KEE (acute kidney injury) -Secondary to dehydration and vasomotor nephropathy -IV fluids initiated # Leukocytosis -On ceftriaxone empirically - need Id # DVT prophylaxis -On anticoagulation GI prophylaxis (8) Advance care planning -Patient is full code -Because of the patient's condition and no family available disease education could not be conducted care plan could not be discussed diagnosis could not be discussed prognosis could not be discussed. We will try to reach family members regarding and regarding understanding and agreement with care plan. Critical care statement The high probability OF a clinically significant sudden or life-threatening deterioration of the cardiorespiratory system and endocrine system required my full and direct attention, intervention and postoperative management. The aggregate critical care time was 40 minutes. The time is in addition to time spent performing reported procedures but includes the followin: Data review and interpretation 2: Patient assessment and monitoring of vital signs 3: Documentation 4:: Medication orders and management Advance Directives: Yes (Full code)
--- NOTE | 2021-09-17 09:50 | Progress Note ---
Assessment and Plan Assessment and plan: History of present illness: 41-year-old -[place] male presents to the emergency department after witnessed seizures. In the emergency room patient had multiple seizures. Patient was given 20 mg of Valium in the emergency.. Patient had seizures in with EMS administered 2 mg of Ativan. In the emergency department patient was evaluated multiple seizures because her legs patient was intubated for protection of airway. Patient was seen suggestive of potential headache. And was discharged. Patient had previous tracheostomy and PEG tube. No fever or chills. He received multiple doses of 2 mg of Ativan and a gram of Keppra in the emergency room. Oxygen saturations remained at 92% while on nonrebreather and patient was also tachypneic and accessory musc and low [place] Coma Scale scale. Patient was intubated for protection of airway. Patient was sedated w ith propofol. Hospital Course: 09/17/2021: Awaiting full neuro workup. MRI brain, EEG ordered. F/u neurology input. [facility] for vent management. 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 - Started on IV Keppra and IV Vimpat and Ativan intermittently - CT orbit: negative for acute findings - CT brain: negative for acute findings, frontal lob findings as per report. - EEG ordered - MRI brain ordered (ordered w/o con due to renal insufficiency) - neurology consulted CV: NAD Pulmonary: intubated for airway protection, prior hx of tracheostomy. - intubated on admission, currently sedated. - MV: 20/450/6/40 - CXR negative for acute findings. - CCM consulted on admission - daily abg/cxr. GI: NPO, prior hx of PEG tube. : Hypernatremia, acute kidney injury secondary to vasomotor nephropathy - CR : 1.7 on admission - IVF 1/2 NS at this time -avoid nephrotoxic agents. - trend on BMP - will consider nephrology consultation if remains elevated. ID: Leukocytosis - doubt infection, likely demargination - started on rocephin empircally on admission for meningitis coverage. Low suspicion for meningitis. - d/c abx if procal normal. Heme: NAD Endo: NAD #Advance care planning Patient is full code Because of the patient's condition and no family available disease education could not be conducted care plan could not be discussed diagnosis could not be discussed prognosis could not be discussed. We will try to reach family members regarding and regarding understanding and agreement with care plan. The high probability of a clinically significant, sudden or life threatening deterioration of the [multi] system(s) required my full and direct attention, intervention and personal management. The aggregate critical care time was [60] minutes. This time is in addition to time spent performing reported procedures but includes the following: [x] Data Review and interpretation [x] Patient assessment and monitoring of vital signs [x] Documentation [x] Medication orders and management History Interval history: Intubated and sedated. Hospitalist Physical - Physical exam Narrative exam: Physical Exam: VITAL SIGNS: Reviewed. GENERAL: The patient appears normally developed, Vital signs as documented. thi n gentleman, intubated/sedated HEAD: No signs of head trauma. EYES: Pupils are equal. Extraocular motions intact. EARS: Hearing grossly intact. MOUTH: Oropharynx is normal. NECK: No adenopathy, no JVD. Old tracheostomy scar CHEST: Chest with clear breath sounds bilaterally. No wheezes, rales, or rhonchi. CARDIAC: Regular rate and rhythm. S1 and S2, without murmurs, gallops, or rubs . VASCULAR: No Edema. Peripheral pulses normal and equal in all extremities. ABDOMEN: Soft, non tender and non distended. No rebound or guarding, and no masses palpated. Bowel Sounds normal. MUSCULOSKELETAL: Good range of motion of all major joints. Extremities without clubbing, cyanosis or edema. NEUROLOGIC EXAM: Unable to assess. Pupils sluggish PSYCHIATRIC: Unable to assess. SKIN: detail exam as documented in skin assessment - Constitutional Vitals: Temp Pulse Resp BP Pulse Ox 100.7 F H 126 H 20 106/59 98 09/16/21 20:41 09/17/21 05:10 09/16/21 20:41 09/17/21 05:10 09/17/21 05:10 General appearance: Present: severe distress, well-nourished HEART Score - HEART Score Troponin: Troponin T < 0.010 ng/mL (0.00-0.029) 09/16/21 13:58 Results - Labs CBC & Chem 7: 09/16/21 13:58 09/16/21 13:58 Labs: Laboratory Last Values WBC 17.0 K/mm3 (4.5-11.0) H 09/16/21 13:58 RBC 4.89 M/mm3 (3.65-5.03) 09/16/21 13:58 Hgb 14.5 gm/dl (11.8-15.2) 09/16/21 13:58 Hct 45.6 % (35.5-45.6) 09/16/21 13:58 MCV 93 fl (84-94) 09/16/21 13:58 MCH 30 pg (28-32) 09/16/21 13:58 MCHC 32 % (32-34) 09/16/21 13:58 RDW 13.1 % (13.2-15.2) L 09/16/21 13:58 Plt Count 168 K/mm3 (140-440) 09/16/21 13:58 Lymph % (Auto) 3.7 % (13.4-35.0) L 09/16/21 13:58 Bent % (Auto) 7.6 % (0.0-7.3) H 09/16/21 13:58 Eos % (Auto) 0.0 % (0.0-4.3) 09/16/21 13:58 Baso % (Auto) 0.1 % (0.0-1.8) 09/16/21 13:58 Lymph # (Auto) 0.6 K/mm3 (1.2-5.4) L 09/16/21 13:58 Bent # (Auto) 1.3 K/mm3 (0.0-0.8) H 09/16/21 13:58 Eos # (Auto) 0.0 K/mm3 (0.0-0.4) 09/16/21 13:58 Baso # (Auto) 0.0 K/mm3 (0.0-0.1) 09/16/21 13:58 Seg Neutrophils % 88.6 % (40.0-70.0) H 09/16/21 13:58 Seg Neutrophils # 15.0 K/mm3 (1.8-7.7) H 09/16/21 13:58 D-Dimer 768.76 ng/mlDDU (0-234) H 09/16/21 18:23 ABG pH 7.404 (7.320-7.450) 09/17/21 05:36 POC ABG pCO2 32.4 mmHg (32.0-48.0) 09/17/21 05:36 ABG pCO2 34.1 mm Hg 09/16/21 16:15 POC ABG pO2 164.9 mmHg (83-108) H 09/17/21 05:36 ABG pO2 97.3 mm Hg (80.0-90.0) H 09/16/21 16:15 POC ABG HCO3 19.8 09/17/21 05:36 ABG HCO3 16.8 mmol/L (20.0-26.0) L 09/16/21 16:15 ABG O2 Saturation 99.3 (0-100) 09/17/21 05:36 ABG O2 Content 19.3 (0.0-44) 09/16/21 16:15 POC ABG Base Excess -4.1 09/17/21 05:36 ABG Base Excess -8.4 mmol/L (-2.0-3.0) L 09/16/21 16:15 ABG Hemoglobin 12.3 (12.0-17.5) 09/17/21 05:36 ABG Oxyhemoglobin 98.5 (94-98) H 09/17/21 05:36 ABG Carboxyhemoglobin 1.2 % (0.0-5.0) 09/16/21 16:15 ABG Methemoglobin 0.3 (0.0-1.5) 09/17/21 05:36 ABG Sodium 141.5 mmol/L (136.0-145.0) 09/17/21 05:36 ABG Potassium 4.2 mmol/L (3.40-4.50) 09/17/21 05:36 ABG Chloride 112.0 mmol/L (98-107) H 09/17/21 05:36 ABG Glucose 111 mg/dL (65-95) H 09/17/21 05:36 Oxyhemoglobin 95.3 % (95.0-99.0) 09/16/21 16:15 Carboxyhemoglobin 0.5 (0.5-1.5) 09/17/21 05:36 FiO2 60 % 09/16/21 16:15 FiO2 % 40.0 09/17/21 05:36 Sodium 149 mmol/L (137-145) H 09/16/21 13:58 Potassium 4.8 mmol/L (3.6-5.0) 09/16/21 13:58 Chloride 108.9 mmol/L (98-107) H 09/16/21 13:58 Carbon Dioxide 13 mmol/L (22-30) L 09/16/21 13:58 Anion Gap 32 mmol/L 09/16/21 13:58 BUN 44 mg/dL (9-20) H 09/16/21 13:58 Creatinine 1.7 mg/dL (0.8-1.3) H 09/16/21 13:58 Estimated GFR 54 ml/min 09/16/21 13:58 BUN/Creatinine Ratio 26 % 09/16/21 13:58 Glucose 100 mg/dL (75-100) 09/16/21 13:58 POC Glucose 86 mg/dL (70-105) 09/16/21 13:44 Lactic Acid 1.50 mmol/L (0.7-2.0) 09/16/21 17:47 Calcium 9.5 mg/dL (8.4-10.2) 09/16/21 13:58 Ferritin 230.4 ng/mL (30.0-300.0) 09/16/21 18:23 Total Bilirubin 1.00 mg/dL (0.1-1.2) 09/16/21 13:58 AST 66 units/L (5-40) H 09/16/21 13:58 ALT 37 units/L (7-56) 09/16/21 13:58 Alkaline Phosphatase 85 units/L (35-129) 09/16/21 13:58 Ammonia 22.0 umol/L (25-60) L 09/16/21 13:58 Lactate Dehydrogenase 352 units/L (91-180) H 09/16/21 18:23 Total Creatine Kinase 2443 units/L (55-170) H 09/16/21 13:58 Troponin T < 0.010 ng/mL (0.00-0.029) 09/16/21 13:58 C-Reactive Protein 11.00 mg/dL (0.00-1.30) H 09/16/21 18:23 Total Protein 7.8 g/dL (6.3-8.2) 09/16/21 13:58 Albumin 4.3 g/dL (3.9-5) 09/16/21 13:58 Albumin/Globulin Ratio 1.2 % 09/16/21 13:58 TSH 0.062 mlU/mL (0.270-4.200) L 09/16/21 13:58 Free T4 1.19 ng/dL (0.76-1.46) 09/16/21 17:47 Arterial Blood Glucose 111 mg/dL (65-95) H 09/17/21 05:36 Arterial Blood Ionized Calcium 4.5 mg/dL (4.6-5.3) L 09/17/21 05:36 CSF Appearance Clear 09/16/21 16:15 CSF Color Colorless 09/16/21 16:15 CSF WBC 26 /mm3 (1-10) 09/16/21 16:15 CSF RBC 33 /mm3 (0-0) 09/16/21 16:15 CSF Seg Neutrophils 99.0 % (0-6) 09/16/21 16:15 CSF Monocytes % 1.0 % (15-45) 09/16/21 16:15 CSF Pathologist Review C 09/16/21 16:15 CSF Glucose 70 mg/dL 09/16/21 16:15 Salicylates < 0.3 mg/dL (2.8-20.0) L 09/16/21 13:58 Acetaminophen 5.0 ug/mL (10.0-30.0) L 09/16/21 13:58 Plasma/Serum Alcohol < 0.01 % (0-0.07) 09/16/21 13:58 Microbiology: Microbiology 09/16/21 16:15 Cerebral Spinal Fluid Gram Stain - Final 09/16/21 16:15 Cerebral Spinal Fluid CSF Culture - Preliminary 09/16/21 16:15 Cerebral Spinal Fluid Cryptococcal Antigen - Final 09/16/21 13:58 Peripheral/Venous Blood Culture - Preliminary Culture in Progress 09/16/21 13:58 Peripheral/Venous Blood Culture - Preliminary Culture in Progress Active Medications - Current Medications Current Medications: Generic Name Dose Route Start Last Admin Trade Name Freq PRN Reason Stop Dose Admin Acetaminophen 650 mg 09/16/21 21:00 09/16/21 21:00 Acetaminophen 650 Mg Rect Supp MO 650 mg Q4H PRN Administration Pain, Mild (1-3) Acetaminophen 650 mg 09/16/21 22:57 Acetaminophen 325 Mg Tab PO Q4H PRN Pain MILD(1-3)/Fever >100.5/CELESTE Famotidine 20 mg 09/16/21 22:00 09/17/21 01:26 Famotidine 20 Mg/2 Ml Inj IV 20 mg BID EPIFANIO Administration Heparin Sodium (Porcine) 5,000 unit 09/16/21 23:00 09/17/21 01:29 Heparin 5,000 Unit/1 Ml Vial SUB-Q 5,000 unit Q12HR EPIFANIO Administration Hydrophilic Ointment 1 applic 09/16/21 13:23 Lip Therapy Vaseline TP Q2HR PRN Dry Lips Propofol 1,000 mg in 100 mls @ 2.449 mls/hr 09/16/21 14:00 09/17/21 01:24 Diprivan 10 Mg/Ml IV 30 mcg/kg/min TITR EPIFANIO 14.696 mls/hr Administration Protocol 5 MCG/KG/MIN Levetiracetam 1,000 mg/ 110 mls @ 400 mls/hr 09/17/21 10:00 Dextrose IV Q12HR EPIFANIO Lacosamide 200 mg/ Sodium 120 mls @ 100 mls/hr 09/16/21 23:45 09/17/21 01:27 Chloride IV 100 mls/hr Q12HR EPIFANIO Administration Metoclopramide HCl 5 mg 09/16/21 22:57 Metoclopramide 10 Mg/2 Ml Inj IV Q6H PRN Nausea And Vomiting Morphine Sulfate 2 mg 09/16/21 22:57 Morphine 2 Mg/1 Ml Inj IV Q4H PRN Pain, Moderate (4-6) Multi-Ingred Cream/Lotion/Oil/Oint 1 applic 09/16/21 13:23 Mineral Oil/Petrolatum, White Ophth Oint 3.5 Gm OU Q4HR PRN Dry Eye(s) Ondansetron HCl 4 mg 09/16/21 22:57 Ondansetron 4 Mg/2 Ml Inj IV Q8H PRN Nausea And Vomiting Senna/Docusate Sodium 1 tab 09/16/21 22:00 09/17/21 01:26 Sennosides/Docusate Sodium 8.6/50 Mg Tab FEEDTUBE 1 tab BID EPIFANIO Administration Sodium Chloride 10 ml 09/16/21 23:00 09/17/21 01:27 Sodium Chloride 0.9% 10 Ml Flush Syringe IV 10 ml BID EPIFANIO Administration Sodium Chloride 10 ml 09/16/21 22:57 Sodium Chloride 0.9% 10 Ml Flush Syringe IV PRN PRN LINE FLUSH
--- NOTE | 2021-09-17 10:05 | Electrocardiograph Report ---
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
[2021-09-17] MEDS: levETIRAcetam 1,000 MG in DEXTROSE 5% IN WATER 100 ML IV SCH ×2 (14:07→22:09)
[2021-09-17 23:55] LABS: Bilirubin,Urine NEG (Negative); Blood,Urine NEG (Negative); Color,Urine Yellow (Yellow); Mucus,Urine FEW /HPF; Urobilinogen,Urine < 2.0 mg/dL (<2.0)
[2021-09-17 23:56] LABS: Amphetamine Screen,Urine PRESUMPTIVE NEGATIVE; Benzodiazepines Screen,Urine PRESUMPTIVE NEGATIVE; Cannabinoid Screen,Urine PRESUMPTIVE POSITIVE; Cocaine Screen,Urine PRESUMPTIVE NEGATIVE; Methadone Screen,Urine PRESUMPTIVE NEGATIVE; Opiate Screen,Urine PRESUMPTIVE NEGATIVE
--- NOTE | 2021-09-18 00:50 | Event Note ---
Date: 09/18/21 Patient is posturing also pupil is less reactive to light. We will order a stat CT scan of the head. Neurologist is consulted EEG and MRI is ordered
--- NOTE | 2021-09-18 01:25 | Cat Scan Report ---
CT head without contrast INDICATION : Neuro changes, blown pupils, postering. TECHNIQUE: Axial imaging performed from the skull apex through the skull base without the use of con trast. All CT scans at this location are performed using CT dose reduction for ALARA by means of aut omated exposure control. COMPARISON: CT head from 2 days prior FINDINGS: Parenchyma: No acute intracranial hemorrhage or parenchymal abnormality identified. A right frontal ventricular catheter is again seen terminating in the midline with encephalomalacia in the right fron toparietal region and ex vacuo dilatation of the right frontal horn. Ventricles: Ventricles otherwise remain unchanged in size. Soft tissues: Soft tissues including the orbits appear normal. Bones: Postoperative change seen along the right frontal skull. Sinuses: Diffuse paranasal mucosal thickening noted. IMPRESSION: No acute abnormality identified. Old postoperative intraparenchymal changes as above. Signer Name: Sanchez Cassidy MD Signed: 09/18/2021 1:21 AM Workstation Name: [email or web address]
[2021-09-18] MEDS ORDERED: LORazepam 2 MG/ML VIAL ONE (02:21)
[2021-09-18] MEDS ORDERED: LORazepam 2 MG/ML VIAL IV PRN (02:25)
[2021-09-18] MEDS ORDERED: MIDAZOLAM 2 MG/2 ML INJ IV PRN (03:20)
[2021-09-18] MEDS ORDERED: MIDAZOLAM 100 MG in SODIUM CHLORIDE 0.9% 80 ML IV SCH (03:21)
--- NOTE | 2021-09-18 03:44 | XRay Report ---
CHEST - 1 VIEW INDICATION: follow up respiratory failure COMPARISON: Yesterday FINDINGS: SUPPORT DEVICES: Stable support device positioning. HEART: Stable cardiomediastinal silhouette. LUNGS/PLEURA: Clear lungs. ADDITIONAL FINDINGS: None. IMPRESSION: Unchanged exam. Signer Name: Sanchez Cassidy MD Signed: 09/18/2021 3:40 AM Workstation Name: [email or web address]
[2021-09-18 05:41] LABS: Basophils % (Auto) 0.2 % (0.0-1.8); Eosinophils % (Auto) 0.5 % (0.0-4.3); Hematocrit 36.5 % (35.5-45.6); Hemoglobin 11.9 gm/dl (11.8-15.2); Lymphocytes # (Auto) 0.9 K/mm3 (1.2-5.4); Lymphocytes % (Auto) 11.7 % (13.4-35.0); Mean Corpuscular HGB Conc 33 % (32-34); Mean Corpuscular Volume 93 fl (84-94); Monocytes # (Auto) 0.6 K/mm3 (0.0-0.8); Monocytes % (Auto) 7.8 % (0.0-7.3); Platelet Count 100 K/mm3 (140-440); Red Blood Count 3.93 M/mm3 (3.65-5.03); Red Cell Distribution Width 13.1 % (13.2-15.2)
[2021-09-18 05:46] LABS: Alanine Aminotransferase 20 units/L (7-56); Albumin 3.1 g/dL (3.9-5); Blood Urea Nitrogen 12 mg/dL (9-20); Calcium 8.6 mg/dL (8.4-10.2); Hemolysis Index 17
[2021-09-18 05:49] LABS: BUN/Creatinine Ratio 17
[2021-09-18] MEDS ORDERED: LACTATED RINGERS 1,000 ML IV ONE (09:45)
[2021-09-18] MEDS: LACOSAMIDE 200 MG in SODIUM CHLORIDE 0.9% 100 ML IV SCH ×2 (10:56→21:27)
[2021-09-18] MEDS: SENNOSIDES/DOCUSATE SODIUM 8.6/50 MG TAB FEEDTUBE SCH ×2 (10:57→21:28)
[2021-09-18] MEDS: HEPARIN 5,000 UNIT/1 ML VIAL SUB-Q SCH ×2 (10:57→21:28)
[2021-09-18] MEDS: levETIRAcetam 1,500 MG in DEXTROSE 5% IN WATER 100 ML IV SCH ×2 (10:57→21:27)
[2021-09-18] MEDS: FAMOTIDINE 20 MG/2 ML INJ IV SCH ×2 (10:57→21:28)
--- NOTE | 2021-09-18 11:21 | Progress Note ---
Assessment and Plan Assessment and Plan Assessment and plan: - Patient Problems # Acute encephalopathy -Secondary to seizures and a low Glascow coma scale r/o infection -Patient intubated -Started on IV Keppra and IV Vimpat and Ativan intermittently -sedated with propofol #20mc,m, and versid #2 mc. -LP done wbcs#26 with normal glucose ,gram stain is pending,c/s is pending -need ID -EEG is pending -MRI with gd is pending -seizure precaution -Stat CT brain from last night is noted #Brain injury with right frontal post operative changes and shunt placment -MRI brain with gd is pending -EEG is pending # Status epilepticus -Patient started on IV Keppra, IV Vimpat and IV Ativan -MRI with gd brain is pending -CT brain is unremarkable{ Remote finding with right frontal shunt} -EEG # Hypernatremia -IV fluids at half-normal saline for now # KEE (acute kidney injury) -Secondary to dehydration and vasomotor nephropathy -IV fluids initiated # Leukocytosis -On ceftriaxone empirically - need Id # DVT prophylaxis -On anticoagulation GI prophylaxis Subjective Date of service: 09/18/21 Principal diagnosis: recurrent seizure, controlled since in hospital Interval history: status is unchanged pt. is intubated and sedated no reported seizure STAT CT brain done last night showed no changes no clear decerebration is noted on evaluation Objective - Vital Sign Vital Signs - 12hr 09/17/21 09/17/21 09/17/21 23:15 23:31 23:40 Temperature Pulse Rate 95 H 95 H 91 H Respiratory 20 20 Rate Blood Pressure 104/64 100/67 116/78 O2 Sat by Pulse 100 100 100 Oximetry 09/17/21 09/18/21 09/18/21 23:45 00:07 01:34 Temperature Pulse Rate 98 H 91 H Respiratory 22 20 Rate Blood Pressure 121/89 O2 Sat by Pulse 100 Oximetry 09/18/21 09/18/21 09/18/21 02:40 02:45 02:48 Temperature 100.3 F H Pulse Rate 93 H 96 H Respiratory 20 20 Rate Blood Pressure 102/68 O2 Sat by Pulse 100 100 Oximetry 09/18/21 09/18/21 09/18/21 03:00 03:15 03:31 Temperature Pulse Rate 92 H 95 H 98 H Respiratory 20 20 21 Rate Blood Pressure 109/63 101/67 110/75 O2 Sat by Pulse 100 100 100 Oximetry 09/18/21 09/18/21 09/18/21 03:45 04:00 04:09 Temperature 98.4 F Pulse Rate 93 H 91 H 95 H Respiratory 20 20 Rate Blood Pressure 114/74 105/73 120/82 O2 Sat by Pulse 100 100 100 Oximetry 09/18/21 09/18/21 09/18/21 04:13 04:15 04:30 Temperature Pulse Rate 89 92 H Respiratory 20 20 Rate Blood Pressure 116/67 122/72 O2 Sat by Pulse 100 100 100 Oximetry 09/18/21 09/18/21 09/18/21 04:45 05:00 05:15 Temperature Pulse Rate 98 H 96 H 94 H Respiratory 20 20 20 Rate Blood Pressure 97/59 102/59 97/58 O2 Sat by Pulse 100 99 100 Oximetry 09/18/21 09/18/21 09/18/21 05:30 05:45 06:00 Temperature Pulse Rate 93 H 90 88 Respiratory 21 20 20 Rate Blood Pressure 112/77 123/69 102/69 O2 Sat by Pulse 100 100 100 Oximetry 09/18/21 09/18/21 07:48 08:06 Temperature 99.6 F Pulse Rate 98 H Respiratory Rate Blood Pressure 99/56 O2 Sat by Pulse 100 Oximetry - General Apperance Constitutional: comfortable - EENT EENT: PERRL, mucous membranes moist - Respiratory Respiratory: lungs clear, rhonchi - Cardiovascular Cardiovascular: regular rate, normal S1, normal S2 Extremities: no peripheral edema bilat, no clubbing, cyanosis - Gastrointestinal Gastrointestinal: normoactive bowel sounds - Integumentary Integumentary: normal - Neurologic Cranial nerve examination: PERRL, EOMI, intact, other (pupils 3 mm reactive t abdiaziz ,EOMI,Corneal intact gag is intact ) Detailed motor examination: other (he slight withdraw to sternal rub , no reported seizure ) - Laboratory Findings CBC and BMP: 09/18/21 04:20 09/18/21 04:20 Abnormal Lab Findings: Abnormal Labs 09/16/21 09/16/21 09/16/21 13:58 13:58 13:58 WBC 17.0 H RDW 13.1 L Plt Count Lymph % (Auto) 3.7 L [place] % (Auto) 7.6 H Lymph # (Auto) 0.6 L [place] # (Auto) 1.3 H Seg Neutrophils % 88.6 H Seg Neutrophils # 15.0 H D-Dimer ABG pH POC ABG pO2 ABG pO2 ABG HCO3 ABG Base Excess ABG Oxyhemoglobin ABG Chloride ABG Glucose Carboxyhemoglobin Sodium 149 H Chloride 108.9 H Carbon Dioxide 13 L BUN 44 H Creatinine 1.7 H Lactic Acid AST 66 H Ammonia 22.0 L Lactate Dehydrogenase Total Creatine Kinase 2443 H C-Reactive Protein Total Protein Albumin TSH Arterial Blood Glucose Arterial Blood Ionized Calcium Urine WBC (Auto) Salicylates Acetaminophen 09/16/21 09/16/21 09/16/21 13:58 13:58 13:58 WBC RDW Plt Count Lymph % (Auto) [place] % (Auto) Lymph # (Auto) [place] # (Auto) Seg Neutrophils % Seg Neutrophils # D-Dimer ABG pH POC ABG pO2 ABG pO2 ABG HCO3 ABG Base Excess ABG Oxyhemoglobin ABG Chloride ABG Glucose Carboxyhemoglobin Sodium Chloride Carbon Dioxide BUN Creatinine Lactic Acid AST Ammonia Lactate Dehydrogenase Total Creatine Kinase C-Reactive Protein Total Protein Albumin TSH 0.062 L Arterial Blood Glucose Arterial Blood Ionized Calcium Urine WBC (Auto) Salicylates < 0.3 L Acetaminophen 5.0 L 09/16/21 09/16/21 09/16/21 13:58 16:15 18:23 WBC RDW Plt Count Lymph % (Auto) [place] % (Auto) Lymph # (Auto) [place] # (Auto) Seg Neutrophils % Seg Neutrophils # D-Dimer 768.76 H ABG pH 7.311 L POC ABG pO2 ABG pO2 97.3 H ABG HCO3 16.8 L ABG Base Excess -8.4 L ABG Oxyhemoglobin ABG Chloride ABG Glucose Carboxyhemoglobin Sodium Chloride Carbon Dioxide BUN Creatinine Lactic Acid 2.20 H* AST Ammonia Lactate Dehydrogenase Total Creatine Kinase C-Reactive Protein Total Protein Albumin TSH Arterial Blood Glucose Arterial Blood Ionized Calcium Urine WBC (Auto) Salicylates Acetaminophen 09/16/21 09/17/21 09/17/21 18:23 05:36 23:29 WBC RDW Plt Count Lymph % (Auto) [place] % (Auto) Lymph # (Auto) [place] # (Auto) Seg Neutrophils % Seg Neutrophils # D-Dimer ABG pH POC ABG pO2 164.9 H ABG pO2 ABG HCO3 ABG Base Excess ABG Oxyhemoglobin 98.5 H ABG Chloride 112.0 H ABG Glucose 111 H Carboxyhemoglobin Sodium Chloride Carbon Dioxide BUN Creatinine Lactic Acid AST Ammonia Lactate Dehydrogenase 352 H Total Creatine Kinase C-Reactive Protein 11.00 H Total Protein Albumin TSH Arterial Blood Glucose 111 H Arterial Blood Ionized Calcium 4.5 L Urine WBC (Auto) 7.0 H Salicylates Acetaminophen 09/18/21 09/18/21 09/18/21 04:20 04:20 08:09 WBC RDW 13.1 L Plt Count 100 L Lymph % (Auto) 11.7 L [place] % (Auto) 7.8 H Lymph # (Auto) 0.9 L [place] # (Auto) Seg Neutrophils % 79.8 H Seg Neutrophils # D-Dimer ABG pH 7.453 H POC ABG pO2 144.0 H ABG pO2 ABG HCO3 ABG Base Excess ABG Oxyhemoglobin 98.5 H ABG Chloride 110.0 H ABG Glucose Carboxyhemoglobin 0.2 L Sodium 147 H Chloride 112.7 H Carbon Dioxide 21 L D BUN Creatinine 0.7 L D Lactic Acid AST Ammonia Lactate Dehydrogenase Total Creatine Kinase C-Reactive Protein Total Protein 5.8 L D Albumin 3.1 L TSH Arterial Blood Glucose Arterial Blood Ionized Calcium Urine WBC (Auto) Salicylates Acetaminophen
[2021-09-18] MEDS ORDERED: SODIUM BICARBONATE 325 MG TAB FEEDTUBE PRN (11:34)
[2021-09-18] MEDS ORDERED: LIPASE 10,500/PROTEASE 25,000/AMYLASE 43,750 (UNITS) DR CAP FEEDTUBE PRN (11:34)
[2021-09-18] MEDS ORDERED: SIMPLE SYRUP 15 ML FEEDTUBE PRN ×2 (11:34)
--- NOTE | 2021-09-18 12:30 | XRay Report ---
XR abdomen 1V ap INDICATION: OG Placement COMPARISON: None. FINDINGS/IMPRESSION: Enteric tube terminates in the distal stomach. Side-port is appropriately positioned beneath the GE j unction. Signer Name: Trey Gonzalez MD Signed: 09/18/2021 12:25 PM Workstation Name: [email or web address]
--- NOTE | 2021-09-18 15:13 | Consultation ---
History of Present Illness Consult date: 09/18/21 Past History Past Medical History: seizures, other (Asthma) Past Surgical History: Other (Tracheostomy and PEG tube) Social history: full code, other (Patient was incarcerated) Family history: hypertension Medications and Allergies Allergies Allergy/AdvReac Type Severity Reaction Status Date / Time No Known Allergies Allergy Verified 08/26/21 05:16 Home Medications Medication Instructions Recorded Confirmed Last Taken Type Albuterol Mdi (or & Nicu Only) 2 puff IH QID PRN #8.5 gram 08/26/21 Unknown Rx [ProAir HFA Inhaler] Ibuprofen [Motrin] 600 mg PO Q8H PRN #20 tablet 09/10/21 Unknown Rx Active Meds: Active Medications Acetaminophen (Acetaminophen 650 Mg Rect Supp) 650 mg AR Q4H PRN PRN Reason: Pain, Mild (1-3) Last Admin: 09/16/21 21:00 Dose: 650 mg Acetaminophen (Acetaminophen 325 Mg Tab) 650 mg PO Q4H PRN PRN Reason: Pain MILD(1-3)/Fever >100.5/CELESTE Lipase/Protease/Amylase (Lipase 10,500/Protease 25,000/Amylase 43,750 (Units) Dr Márquez) 1 each FEEDTUBE PRN PRN PRN Reason: For Clogged Feeding Tube Famotidine (Famotidine 20 Mg/2 Ml Inj) 20 mg IV BID EPIFANIO Last Admin: 09/18/21 10:57 Dose: 20 mg Heparin Sodium (Porcine) (Heparin 5,000 Unit/1 Ml Vial) 5,000 unit SUB-Q Q12HR EPIFANIO Last Admin: 09/18/21 10:57 Dose: 5,000 unit Hydrophilic Ointment (Lip Therapy Vaseline) 1 applic TP Q2HR PRN PRN Reason: Dry Lips Propofol (Diprivan 10 Mg/Ml) 1,000 mg in 100 mls @ 2.449 mls/hr IV TITR EPIFANIO; Protocol Last Admin: 09/18/21 14:29 Dose: 15 mcg/kg/min, 7.348 mls/hr Lacosamide 200 mg/ Sodium (Chloride) 120 mls @ 100 mls/hr IV Q12HR EPIFANIO Last Admin: 09/18/21 10:56 Dose: 100 mls/hr Midazolam HCl 100 mg/ Sodium (Chloride) 100 mls @ 1 mls/hr IV TITR EPIFANIO; Protocol Last Titration: 09/18/21 13:30 Dose: 0 mg/hr, 0 mls/hr Levetiracetam 1,500 mg/ (Dextrose) 115 mls @ 400 mls/hr IV Q12HR [facility] Last Admin: 09/18/21 10:57 Dose: 400 mls/hr Lorazepam (Lorazepam 2 Mg/Ml Vial) 2 mg IV Q4H PRN PRN Reason: seizure Last Admin: 09/18/21 02:20 Dose: 2 mg Metoclopramide HCl (Metoclopramide 10 Mg/2 Ml Inj) 5 mg IV Q6H PRN PRN Reason: Nausea And Vomiting Midazolam HCl (Midazolam 2 Mg/2 Ml Inj) 2 mg IV Q10MIN PRN PRN Reason: Sedation Last Admin: 09/18/21 04:59 Dose: 2 mg Morphine Sulfate (Morphine 2 Mg/1 Ml Inj) 2 mg IV Q4H PRN PRN Reason: Pain, Moderate (4-6) Multi-Ingred Cream/Lotion/Oil/Oint (Mineral Oil/Petrolatum, White Ophth Oint 3.5 Gm) 1 applic OU Q4HR PRN PRN Reason: Dry Eye(s) Ondansetron HCl (Ondansetron 4 Mg/2 Ml Inj) 4 mg IV Q8H PRN PRN Reason: Nausea And Vomiting Senna/Docusate Sodium (Sennosides/Docusate Sodium 8.6/50 Mg Tab) [address] [facility] Last Admin: 09/18/21 10:57 Dose: 1 tab Simple Syrup (Simple Syrup 15 Ml) 15 ml FEEDTUBE PRN PRN PRN Reason: Hypoglycemia Simple Syrup (Simple Syrup 15 Ml) 30 ml FEEDTUBE PRN PRN PRN Reason: Hypoglycemia Sodium Bicarbonate (Sodium Bicarbonate 325 Mg Tab) 325 mg FEEDTUBE PRN PRN PRN Reason: For Clogged Feeding Tube Sodium Chloride (Sodium Chloride 0.9% 10 Ml Flush Syringe) [address] [facility] Last Admin: 09/18/21 10:59 Dose: 10 ml Sodium Chloride (Sodium Chloride 0.9% 10 Ml Flush Syringe) 10 ml IV PRN PRN PRN Reason: LINE FLUSH Physical Examination Vital signs: Vital Signs Pulse BP Pulse Ox 168 H 149/95 98 09/16/21 13:44 09/16/21 13:44 09/16/21 13:44 Results - Laboratory Findings CBC and BMP: 09/18/21 04:20 09/18/21 04:20 ABG ABG pH 7.453 (7.320-7.450) H 09/18/21 08:09 POC ABG pCO2 32.0 mmHg (32.0-48.0) 09/18/21 08:09 ABG pCO2 34.1 mm Hg 09/16/21 16:15 POC ABG pO2 144.0 mmHg (83-108) H 09/18/21 08:09 ABG pO2 97.3 mm Hg (80.0-90.0) H 09/16/21 16:15 POC ABG HCO3 21.9 09/18/21 08:09 ABG O2 Saturation 99.0 (0-100) 09/18/21 08:09 PT/INR, D-dimer D-Dimer 768.76 ng/mlDDU (0-234) H 09/16/21 18:23 Abnormal lab findings: Abnormal Labs 09/16/21 09/16/21 09/16/21 13:58 13:58 13:58 WBC 17.0 H RDW 13.1 L Plt Count Lymph % (Auto) 3.7 L [place] % (Auto) 7.6 H Lymph # (Auto) 0.6 L [place] # (Auto) 1.3 H Seg Neutrophils % 88.6 H Seg Neutrophils # 15.0 H D-Dimer ABG pH POC ABG pO2 ABG pO2 ABG HCO3 ABG Base Excess ABG Oxyhemoglobin ABG Chloride ABG Glucose Carboxyhemoglobin Sodium 149 H Chloride 108.9 H Carbon Dioxide 13 L BUN 44 H Creatinine 1.7 H Lactic Acid AST 66 H Ammonia 22.0 L Lactate Dehydrogenase Total Creatine Kinase 2443 H C-Reactive Protein Total Protein Albumin TSH Arterial Blood Glucose Arterial Blood Ionized Calcium Urine WBC (Auto) Salicylates Acetaminophen 09/16/21 09/16/21 09/16/21 13:58 13:58 13:58 WBC RDW Plt Count Lymph % (Auto) [place] % (Auto) Lymph # (Auto) [place] # (Auto) Seg Neutrophils % Seg Neutrophils # D-Dimer ABG pH POC ABG pO2 ABG pO2 ABG HCO3 ABG Base Excess ABG Oxyhemoglobin ABG Chloride ABG Glucose Carboxyhemoglobin Sodium Chloride Carbon Dioxide BUN Creatinine Lactic Acid AST Ammonia Lactate Dehydrogenase Total Creatine Kinase C-Reactive Protein Total Protein Albumin TSH 0.062 L Arterial Blood Glucose Arterial Blood Ionized Calcium Urine WBC (Auto) Salicylates < 0.3 L Acetaminophen 5.0 L 09/16/21 09/16/21 09/16/21 13:58 16:15 18:23 WBC RDW Plt Count Lymph % (Auto) [place] % (Auto) Lymph # (Auto) [place] # (Auto) Seg Neutrophils % Seg Neutrophils # D-Dimer 768.76 H ABG pH 7.311 L POC ABG pO2 ABG pO2 97.3 H ABG HCO3 16.8 L ABG Base Excess -8.4 L ABG Oxyhemoglobin ABG Chloride ABG Glucose Carboxyhemoglobin Sodium Chloride Carbon Dioxide BUN Creatinine Lactic Acid 2.20 H* AST Ammonia Lactate Dehydrogenase Total Creatine Kinase C-Reactive Protein Total Protein Albumin TSH Arterial Blood Glucose Arterial Blood Ionized Calcium Urine WBC (Auto) Salicylates Acetaminophen 09/16/21 09/17/21 09/17/21 18:23 05:36 23:29 WBC RDW Plt Count Lymph % (Auto) [place] % (Auto) Lymph # (Auto) [place] # (Auto) Seg Neutrophils % Seg Neutrophils # D-Dimer ABG pH POC ABG pO2 164.9 H ABG pO2 ABG HCO3 ABG Base Excess ABG Oxyhemoglobin 98.5 H ABG Chloride 112.0 H ABG Glucose 111 H Carboxyhemoglobin Sodium Chloride Carbon Dioxide BUN Creatinine Lactic Acid AST Ammonia Lactate Dehydrogenase 352 H Total Creatine Kinase C-Reactive Protein 11.00 H Total Protein Albumin TSH Arterial Blood Glucose 111 H Arterial Blood Ionized Calcium 4.5 L Urine WBC (Auto) 7.0 H Salicylates Acetaminophen 09/18/21 09/18/21 09/18/21 04:20 04:20 08:09 WBC RDW 13.1 L Plt Count 100 L Lymph % (Auto) 11.7 L [place] % (Auto) 7.8 H Lymph # (Auto) 0.9 L [place] # (Auto) Seg Neutrophils % 79.8 H Seg Neutrophils # D-Dimer ABG pH 7.453 H POC ABG pO2 144.0 H ABG pO2 ABG HCO3 ABG Base Excess ABG Oxyhemoglobin 98.5 H ABG Chloride 110.0 H ABG Glucose Carboxyhemoglobin 0.2 L Sodium 147 H Chloride 112.7 H Carbon Dioxide 21 L D BUN Creatinine 0.7 L D Lactic Acid AST Ammonia Lactate Dehydrogenase Total Creatine Kinase C-Reactive Protein Total Protein 5.8 L D Albumin 3.1 L TSH Arterial Blood Glucose Arterial Blood Ionized Calcium Urine WBC (Auto) Salicylates Acetaminophen Assessment and Plan 41 y/o inmate, no released with prior history of TBI, Asthma and schizophrenia, admitted with status epilepticus, requiring intubation to abort seizure and airway protection. 1. Wean Versed off 2. If no seizure activity of versed, wean diprovan off 3. Agree with increasing keppra 4. Will speak with family about home medication regimen 5. If off both sedatives and no seizures, will extubate, hopefully tomorrow 6. Swab for COVID CCT 31 minutes.
--- NOTE | 2021-09-18 19:28 | Progress Note ---
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 shunt and right frontal lobe surgery admitted with multiple seizures Neuro: Acute epileptic encephalopathy, status epilepticus, h/o right frontal lobe surgery with shunt in place/TBI -Intubated secondary to GCS and seizures for airway protection -Sedated with propofol -RASS goal 0 to -1 -Hold Versed drip and resume only if needed (witnessed seizure activity, hemodynamic instability from increased propofol drip) -Neuro consulted, appreciate recommendations -Loaded with Keppra in the ED -Currently on Keppra, Vimpat and Ativan as needed -Wrist restraints in place for safety -EEG pending -MRI pending -Aspiration/seizure precautions -SAT/SBT when appropriate -09/16 LP: CSF clear, colorless, WBC 26, RBC 33, 6 segmented neutrophils 99, monocytes 1%, glucose 70, negative for cryptococcal antigen and CSF no organisms Cardio: NAD -Blood pressure monitoring per protocol -Holding LR bolus which was ordered due to hypotension but improved after withholding sedation Respiratory: Intubated for airway protection, prior history of tracheostomy -Intubated in the emergency department 09/16 with a 7.50 ETT at [facility] consulted, appreciate recommendations -A.m. vent settings: Assist-control, rate 20, tidal volume 450, PEEP 6, FiO2 40% -See respiratory therapy notes for titration -Decreasing respiratory rate by [facility] -AM CXR and ABG noted -VAP bundle -CXR with no acute findings -Daily CXR and ABG GI: Protein calorie malnutrition, h/o PEG -Nutrition consult for tube feeding -BR: Senokot -PPI -24 hours -865 mL : Hypernatremia, hyperchloremia, metabolic acidosis, acute kidney injury secondary to vasomotor nephropathy (resolved) -admit creatinine 1.7 now normalized 0.7 -S/p IV fluids with half-normal saline -Hypernatremia and hyperchloremia likely caused by saline infusion -Free water flush per NTR -Avoid nephrotoxic medications -Trend BMP ID: NAD -CSF culture negative -Blood cultures x2 no growth to date -Monitor WBC and fever curve -COVID-19 PCR negative Heme: Leukocytosis (resolved) -Trend CBC -Transfuse hemoglobin less than 7 -SCD to bilateral lower extremity while in bed -Lovenox subcu Endo: NAD -Accu-Cheks every 6 -SSI if needed -Avoid hypoglycemia The high probability of a clinically significant, sudden or life threatening deterioration of the [multi] system(s) required my full and direct attention, intervention and personal management. The aggregate critical care time was [60] minutes. This time is in addition to time spent performing reported procedures but includes the following: [x] Data Review and interpretation [x] Patient assessment and monitoring of vital signs [x] Documentation [x] Medication orders and management Disposition Plan: icu Total Time Spent with Patient (Minutes): 60 History Interval history: This is a 41-year-old -[place] male with a history of asthma, PATIENT SUPPORT ASSISTANT shunt, right frontal lobe surgery, schizophrenia and PEG/trach who presented emergency department on 09/16 from local half-way via EMS for witnessed seizures. While in route patient had seizures with EMS and was given 2 mg of Ativan which aborted the seizure. In the emergency department patient had multiple seizures which was aborted with 20 mg of Valium. Of note patient was recently seen in the emergency department on 09/10 for potential headache and CT head was negative and patient was discharged. In the emergency department he received multiple doses of Ativan and was loaded with Keppra. Patient oxygen saturations were 92% while on nonrebreather and was tachypneic with accessory muscle use but he was ultimately in intubated in the emergency department for airway protection. Hospital Course: 09/17/2021: Awaiting full neuro workup. MRI brain, EEG ordered. F/u neurology input. [facility] for vent management. 09/08: Patient was noted to be posturing overnight and repeat CT head and stat EEG was ordered. Repeat CT head showed no acute findings. This morning Keppra was increased. Versed drip was initiated overnight which was turned off this morning for evaluation of neuro status. RN instructed to increase propofol and not resume Versed. Resume Versed if witnessed seizure activity or if increasing propofol needs to hemodynamic instability. Right upper extremity restraint was placed. Hospitalist Physical - Constitutional Vitals: Temp Pulse Resp BP Pulse Ox 96.0 F L 119 H 20 121/69 100 09/18/21 16:00 09/18/21 16:12 09/18/21 16:00 09/18/21 16:12 09/18/21 16:12 General appearance: Present: no acute distress, well-nourished - EENT Eyes: Absent: PERRL (Bilateral pupils 3/4) ENT: clear oral mucosa, dentition normal - Neck Neck: Present: normal ROM - Respiratory Respiratory effort: normal Respiratory: bilateral: diminished - Cardiovascular Rhythm: regular Heart Sounds: Present: S1 & S2. Absent: systolic murmur, diastolic murmur - Extremities Extremities: no ischemia, pulses intact, pulses symmetrical, No edema, normal temperature, normal color Peripheral Pulses: within normal limits - Abdominal General gastrointestinal: soft, non-tender, non-distended - Integumentary Integumentary: Present: warm, dry - Psychiatric Psychiatric: other - Neurologic Neurologic: other (Sedated, pupil 3/4, pupils not reactive to light, moves right upper extremity once off sedation) - Allied Health Allied health notes reviewed: nursing, RT, social work HEART Score - HEART Score Troponin: Troponin T < 0.010 ng/mL (0.00-0.029) 09/16/21 13:58 Results - Labs CBC & Chem 7: 09/18/21 04:20 09/18/21 04:20 Labs: Laboratory Last Values WBC 7.4 K/mm3 (4.5-11.0) 09/18/21 04:20 RBC 3.93 M/mm3 (3.65-5.03) 09/18/21 04:20 Hgb 11.9 gm/dl (11.8-15.2) 09/18/21 04:20 Hct 36.5 % (35.5-45.6) D 09/18/21 04:20 MCV 93 fl (84-94) 09/18/21 04:20 MCH 30 pg (28-32) 09/18/21 04:20 MCHC 33 % (32-34) 09/18/21 04:20 RDW 13.1 % (13.2-15.2) L 09/18/21 04:20 Plt Count 100 K/mm3 (140-440) L 09/18/21 04:20 Lymph % (Auto) 11.7 % (13.4-35.0) L 09/18/21 04:20 [place] % (Auto) 7.8 % (0.0-7.3) H 09/18/21 04:20 Eos % (Auto) 0.5 % (0.0-4.3) 09/18/21 04:20 Baso % (Auto) 0.2 % (0.0-1.8) 09/18/21 04:20 Lymph # (Auto) 0.9 K/mm3 (1.2-5.4) L 09/18/21 04:20 [place] # (Auto) 0.6 K/mm3 (0.0-0.8) 09/18/21 04:20 Eos # (Auto) 0.0 K/mm3 (0.0-0.4) 09/18/21 04:20 Baso # (Auto) 0.0 K/mm3 (0.0-0.1) 09/18/21 04:20 Seg Neutrophils % 79.8 % (40.0-70.0) H 09/18/21 04:20 Seg Neutrophils # 5.9 K/mm3 (1.8-7.7) 09/18/21 04:20 D-Dimer 768.76 ng/mlDDU (0-234) H 09/16/21 18:23 ABG pH 7.453 (7.320-7.450) H 09/18/21 08:09 POC ABG pCO2 32.0 mmHg (32.0-48.0) 09/18/21 08:09 ABG pCO2 34.1 mm Hg 09/16/21 16:15 POC ABG pO2 144.0 mmHg (83-108) H 09/18/21 08:09 ABG pO2 97.3 mm Hg (80.0-90.0) H 09/16/21 16:15 POC ABG HCO3 21.9 09/18/21 08:09 ABG HCO3 16.8 mmol/L (20.0-26.0) L 09/16/21 16:15 ABG O2 Saturation 99.0 (0-100) 09/18/21 08:09 ABG O2 Content 19.3 (0.0-44) 09/16/21 16:15 POC ABG Base Excess -1.3 09/18/21 08:09 ABG Base Excess -8.4 mmol/L (-2.0-3.0) L 09/16/21 16:15 ABG Hemoglobin 12.5 (12.0-17.5) 09/18/21 08:09 ABG Oxyhemoglobin 98.5 (94-98) H 09/18/21 08:09 ABG Carboxyhemoglobin 1.2 % (0.0-5.0) 09/16/21 16:15 ABG Methemoglobin 0.3 (0.0-1.5) 09/18/21 08:09 ABG Sodium 141.6 mmol/L (136.0-145.0) 09/18/21 08:09 ABG Potassium 3.8 mmol/L (3.40-4.50) 09/18/21 08:09 ABG Chloride 110.0 mmol/L (98-107) H 09/18/21 08:09 ABG Glucose 91 mg/dL (65-95) 09/18/21 08:09 Oxyhemoglobin 95.3 % (95.0-99.0) 09/16/21 16:15 Carboxyhemoglobin 0.2 (0.5-1.5) L 09/18/21 08:09 FiO2 60 % 09/16/21 16:15 FiO2 % 40 09/18/21 08:09 Sodium 147 mmol/L (137-145) H 09/18/21 04:20 Potassium 4.3 mmol/L (3.6-5.0) 09/18/21 04:20 Chloride 112.7 mmol/L (98-107) H 09/18/21 04:20 Carbon Dioxide 21 mmol/L (22-30) L D 09/18/21 04:20 Anion Gap 18 mmol/L 09/18/21 04:20 BUN 12 mg/dL (9-20) 09/18/21 04:20 Creatinine 0.7 mg/dL (0.8-1.3) L D 09/18/21 04:20 Estimated GFR > 60 ml/min 09/18/21 04:20 BUN/Creatinine Ratio 17 % 09/18/21 04:20 Glucose 95 mg/dL (75-100) 09/18/21 04:20 POC Glucose 72 mg/dL (70-105) 09/18/21 16:10 Lactic Acid 1.50 mmol/L (0.7-2.0) 09/16/21 17:47 Calcium 8.6 mg/dL (8.4-10.2) 09/18/21 04:20 Ferritin 230.4 ng/mL (30.0-300.0) 09/16/21 18:23 Total Bilirubin 0.60 mg/dL (0.1-1.2) 09/18/21 04:20 AST 24 units/L (5-40) 09/18/21 04:20 ALT 20 units/L (7-56) 09/18/21 04:20 Alkaline Phosphatase 54 units/L (35-129) 09/18/21 04:20 Ammonia 22.0 umol/L (25-60) L 09/16/21 13:58 Lactate Dehydrogenase 352 units/L (91-180) H 09/16/21 18:23 Total Creatine Kinase 2443 units/L (55-170) H 09/16/21 13:58 Troponin T < 0.010 ng/mL (0.00-0.029) 09/16/21 13:58 C-Reactive Protein 11.00 mg/dL (0.00-1.30) H 09/16/21 18:23 Total Protein 5.8 g/dL (6.3-8.2) L D 09/18/21 04:20 Albumin 3.1 g/dL (3.9-5) L 09/18/21 04:20 Albumin/Globulin Ratio 1.1 % 09/18/21 04:20 Procalcitonin 1.44 ng/mL (<0.15) 09/18/21 04:20 TSH 0.062 mlU/mL (0.270-4.200) L 09/16/21 13:58 Free T4 1.19 ng/dL (0.76-1.46) 09/16/21 17:47 Arterial Blood Glucose 91 mg/dL (65-95) 09/18/21 08:09 Arterial Blood Ionized Calcium 4.8 mg/dL (4.6-5.3) 09/18/21 08:09 Urine Color Yellow (Yellow) 09/17/21 23:29 Urine Turbidity Cloudy (Clear) 09/17/21 23:29 Urine pH 5.0 (5.0-7.0) 09/17/21 23:29 Ur Specific [place] 1.028 (1.003-1.030) 09/17/21 23:29 Urine Protein 30 mg/dl mg/dL (Negative) 09/17/21 23:29 Urine Glucose (UA) Neg mg/dL (Negative) 09/17/21 23:29 Urine Ketones 20 mg/dL (Negative) 09/17/21 23:29 Urine Blood Neg (Negative) 09/17/21 23:29 Urine Nitrite Neg (Negative) 09/17/21 23:29 Urine Bilirubin Neg (Negative) 09/17/21 23:29 Urine Urobilinogen < 2.0 mg/dL (<2.0) 09/17/21 23:29 Ur Leukocyte Esterase Neg (Negative) 09/17/21 23:29 Urine WBC (Auto) 7.0 /HPF (0.0-6.0) H 09/17/21 23:29 Urine RBC (Auto) 3.0 /HPF (0.0-6.0) 09/17/21 23:29 Urine Mucus Few /HPF 09/17/21 23:29 Urine Yeast (Budding) 2+ /HPF 09/17/21 23:29 CSF Appearance Clear 09/16/21 16:15 CSF Color Colorless 09/16/21 16:15 CSF WBC 26 /mm3 (1-10) 09/16/21 16:15 CSF RBC 33 /mm3 (0-0) 09/16/21 16:15 CSF Seg Neutrophils 99.0 % (0-6) 09/16/21 16:15 CSF Monocytes % 1.0 % (15-45) 09/16/21 16:15 CSF Pathologist Review C 09/16/21 16:15 CSF Glucose 70 mg/dL 09/16/21 16:15 Salicylates < 0.3 mg/dL (2.8-20.0) L 09/16/21 13:58 Urine Opiates Screen Presumptive negative 09/17/21 23:29 Urine Methadone Screen Presumptive negative 09/17/21 23:29 Acetaminophen 5.0 ug/mL (10.0-30.0) L 09/16/21 13:58 Ur Barbiturates Screen Presumptive negative 09/17/21 23:29 Ur Phencyclidine Scrn Presumptive negative 09/17/21 23:29 Ur Amphetamines Screen Presumptive negative 09/17/21 23:29 U Benzodiazepines Scrn Presumptive negative 09/17/21 23:29 Urine Cocaine Screen Presumptive negative 09/17/21 23:29 U Marijuana (THC) Screen Presumptive positive 09/17/21 23:29 Drugs of Abuse Note Disclamer 09/17/21 23:29 Plasma/Serum Alcohol < 0.01 % (0-0.07) 09/16/21 13:58 Coronavirus (PCR) Negative (Negative) 09/16/21 00:00 Microbiology: Microbiology 09/16/21 13:58 Peripheral/Venous Blood Culture - Preliminary 09/16/21 13:58 Peripheral/Venous Blood Culture - Preliminary NO GROWTH AFTER 48 HOURS Hook/IV: Voiding Method Indwelling Catheter Active Medications - Current Medications Current Medications: Generic Name Dose Route Start Last Admin Trade Name Freq PRN Reason Stop Dose Admin Acetaminophen 650 mg 09/16/21 21:00 09/16/21 21:00 Acetaminophen 650 Mg Rect Supp NM 650 mg Q4H PRN Administration Pain, Mild (1-3) Acetaminophen 650 mg 09/16/21 22:57 Acetaminophen 325 Mg Tab PO Q4H PRN Pain MILD(1-3)/Fever >100.5/CELESTE Lipase/Protease/Amylase 1 each 09/18/21 11:34 Lipase 10,500/Protease 25,000/Amylase 43,750 (Units) Dr Márquez FEEDTUBE PRN PRN For Clogged Feeding Tube Famotidine 20 mg 09/16/21 22:00 09/18/21 10:57 Famotidine 20 Mg/2 Ml Inj IV 20 mg BID EPIFANIO Administration Heparin Sodium (Porcine) 5,000 unit 09/16/21 23:00 09/18/21 10:57 Heparin 5,000 Unit/1 Ml Vial SUB-Q 5,000 unit Q12HR EPIFANIO Administration Hydrophilic Ointment 1 applic 09/16/21 13:23 Lip Therapy Vaseline TP Q2HR PRN Dry Lips Propofol 1,000 mg in 100 mls @ 2.449 mls/hr 09/16/21 14:00 09/18/21 17:19 Diprivan 10 Mg/Ml IV 30 mcg/kg/min TITR EPIFANIO 14.696 mls/hr Titration Protocol 5 MCG/KG/MIN Lacosamide 200 mg/ Sodium 120 mls @ 100 mls/hr 09/16/21 23:45 09/18/21 10:56 Chloride IV 100 mls/hr Q12HR EPIFANIO Administration Midazolam HCl 100 mg/ Sodium 100 mls @ 1 mls/hr 09/18/21 03:21 09/18/21 13:30 Chloride IV 0 mg/hr TITR EPIFANIO 0 mls/hr Titration Protocol 1 MG/HR Levetiracetam 1,500 mg/ 115 mls @ 400 mls/hr 09/18/21 10:00 09/18/21 10:57 Dextrose IV 400 mls/hr Q12HR EPIFANIO Administration Lorazepam 2 mg 09/18/21 02:25 09/18/21 02:20 Lorazepam 2 Mg/Ml Vial IV 2 mg Q4H PRN Administration seizure Metoclopramide HCl 5 mg 09/16/21 22:57 Metoclopramide 10 Mg/2 Ml Inj IV Q6H PRN Nausea And Vomiting Midazolam HCl 2 mg 09/18/21 03:20 09/18/21 04:59 Midazolam 2 Mg/2 Ml Inj IV 2 mg Q10MIN PRN Administration Sedation Morphine Sulfate 2 mg 09/16/21 22:57 Morphine 2 Mg/1 Ml Inj IV Q4H PRN Pain, Moderate (4-6) Multi-Ingred Cream/Lotion/Oil/Oint 1 applic 09/16/21 13:23 Mineral Oil/Petrolatum, White Ophth Oint 3.5 Gm OU Q4HR PRN Dry Eye(s) Ondansetron HCl 4 mg 09/16/21 22:57 Ondansetron 4 Mg/2 Ml Inj IV Q8H PRN Nausea And Vomiting Senna/Docusate Sodium 1 tab 09/16/21 22:00 09/18/21 10:57 Sennosides/Docusate Sodium 8.6/50 Mg Tab FEEDTUBE 1 tab BID EPIFANIO Administration Simple Syrup 15 ml 09/18/21 11:34 Simple Syrup 15 Ml FEEDTUBE PRN PRN Hypoglycemia Simple Syrup 30 ml 09/18/21 11:34 Simple Syrup 15 Ml FEEDTUBE PRN PRN Hypoglycemia Sodium Bicarbonate 325 mg 09/18/21 11:34 Sodium Bicarbonate 325 Mg Tab FEEDTUBE PRN PRN For Clogged Feeding Tube Sodium Chloride 10 ml 09/16/21 23:00 09/18/21 10:59 Sodium Chloride 0.9% 10 Ml Flush Syringe IV 10 ml BID EPIFANIO Administration Sodium Chloride 10 ml 09/16/21 22:57 Sodium Chloride 0.9% 10 Ml Flush Syringe IV PRN PRN LINE FLUSH Nutrition/Malnutrition Assess - Dietary Evaluation Nutrition/Malnutrition Findings: Nutrition Notes Start: 09/18/21 11:06 Freq: Status: Active Protocol: Document 09/18/21 11:06 PRINCESS (Rec: 09/18/21 11:37 PRINCESS [id number]) Nutrition Notes Need for Assessment generated from: MD Order,MST Initial or Follow up Assessment Current Diagnosis Acute Kidney Injury Other Pertinent Diagnosis Acute encephalopathy, Epilepsy , Hypernatremia, Leukocytosis, Asthma. Current Diet TF-Vital AF 1.2 Vignesh @ 50 ml/hr (since L 09/18). Labs/Tests 09/18: Na 147, Cl 112.7, CO2 21, Crea 0.7. Pertinent Medications 09/18: Propofol 1000mg in 100 ml @ 2.449 ml/hr (65 Kcal), others nutritionally unremarkable. Height 5 ft 6 in Weight 63 kg [place] Body Weight (kg) 64.54 BMI 22.4 Intake Prior to Admission Good Weight change and time frame Pt is unsure if have recently lost body weight, STAMP PRESSER. Weight Status Appropriate Subjective/Other Information RD consult for risk of malnutrition assessment, and write/manage TF. Pt sedated and intubated. Pt has PEG tube STAMP PRESSER. No signs of concern for risk of malnutrition at the time, according to Physical Assessment History notes. Percent of energy/protein needs met: Prescribed Vital AF 1.2 Vignesh @ 50 ml/hr provides for energy/ protein needs (1,449 Kcal/91 g ) during LOS, 100% Kcal; 100% AA. Burn Absent Trauma Absent GI Symptoms None Food Allergy No Skin Integrity/Comment Clear, warm, dry. Current % PO Other Minimum of two criteria No #1 Nutrition Diagnosis Inadequate oral intake Etiology Pt on mechanical ventilation. As Evidenced by Signs and Symptoms Pt currently on NPO. Is patient on ventilator? Yes Is Patient Ambulatory and/or Out of Bed No REE-([facility]-confined to bed) 1782.384 Kcal/Kg value to use for calculation 23 Approximate Energy Requirements Using 1449 kcal/Kg Calculation Used for Recommendations Kcal/kg Additional Notes Protein: 1.2-2 g/Kg; 76-126 g/ day. Fluids: 1 ml/Kcal, or as per MD. Nutrition Intervention Nutrition Support: Start Vital AF 1.2 Vignesh @ 50 ml /hr. Flush: 80 ml water Q 4 hr, or as per MD. Kcal 1,449 Protein (gm) 91 Carbohydrates (gm) 134 Fat (gm) 65 Fluid (mL) 979 Fiber (gm) 6 % RDI: 100% Kcal; 100% AA. Goal #1 Provide at least 75% of energy /protein needs through Enteral Feeding during LOS. Follow-Up By: 09/20/21 Additional Comments Continue monitoring TF tolerance and BM.
[2021-09-18] MEDS: ACETAMINOPHEN 325 MG TAB PO PRN (21:27)
[2021-09-19] MEDS: ACETAMINOPHEN 325 MG TAB PO PRN (02:51)
--- NOTE | 2021-09-19 05:01 | XRay Report ---
CHEST - 1 VIEW INDICATION: follow up respiratory failure COMPARISON: Yesterday FINDINGS: SUPPORT DEVICES: Stable support device positioning. HEART: Stable cardiomediastinal silhouette. LUNGS/PLEURA: Clear lungs. ADDITIONAL FINDINGS: None. IMPRESSION: Unchanged exam. Signer Name: Sanchez Cassidy MD Signed: 09/19/2021 4:57 AM Workstation Name: [id number]
[2021-09-19 05:03] LABS: ABG Base Excess 0.6 mmol/L (-2.0-3.0); ABG HCO3 25.2 mmol/L (20.0-26.0); ABG Methemoglobin 0.7 % (0.0-1.5); ABG Oxygen Saturation 98.2 % (95.0-99.0); ABG PCO2 40.5 mm Hg; ABG PH 7.413 pH Units (7.350-7.450); ABG PO2 117.9 mm Hg (80.0-90.0)
[2021-09-19 05:40] LABS: Blood Urea Nitrogen 11 mg/dL (9-20); Calcium 8.6 mg/dL (8.4-10.2); Hemolysis Index 3
[2021-09-19 05:51] LABS: BUN/Creatinine Ratio 16
[2021-09-19 05:59] LABS: Hematocrit 35.8 % (35.5-45.6); Hemoglobin 11.5 gm/dl (11.8-15.2); Mean Corpuscular HGB Conc 32 % (32-34); Mean Corpuscular Volume 93 fl (84-94); Platelet Count 108 K/mm3 (140-440); Red Blood Count 3.84 M/mm3 (3.65-5.03); Red Cell Distribution Width 13.3 % (13.2-15.2)
[2021-09-19] MEDS: FAMOTIDINE 20 MG/2 ML INJ IV SCH ×2 (09:48→22:25)
[2021-09-19] MEDS: HEPARIN 5,000 UNIT/1 ML VIAL SUB-Q SCH ×2 (09:48→22:25)
[2021-09-19] MEDS: levETIRAcetam 1,500 MG in DEXTROSE 5% IN WATER 100 ML IV SCH ×2 (09:48→23:20)
[2021-09-19] MEDS: SENNOSIDES/DOCUSATE SODIUM 8.6/50 MG TAB FEEDTUBE SCH ×2 (09:49→22:27)
--- NOTE | 2021-09-19 10:45 | Progress Note ---
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 -MRI brain with gd is pending -EEG is pending # Status epilepticus -Patient started on IV Keppra, IV Vimpat and IV Ativan -MRI with gd brain is pending -CT brain is unremarkable{ Remote finding with right frontal shunt} -EEG # Hypernatremia-- improved NA today is #143 -IV fluids at half-normal saline for now # KEE (acute kidney injury)-- improved 11/0.7 -Secondary to dehydration and vasomotor nephropathy -IV fluids initiated # Leukocytosis improved -On ceftriaxone empirically - need Id # DVT prophylaxis -On anticoagulation GI prophylaxis Will follow Subjective Date of service: 09/19/21 Principal diagnosis: recurrent seizure, controlled since in hospital Interval history: status is improved more alert off versid and propofol , move head not follow command slightly agitated -- possible extubation today NO seizure is reported EEG not done MRI brain not done fever today Temp.100.6 NA#143 BUN/CR#11/0.7 still on Keppra and vimpat Objective - Vital Sign Vital Signs - 12hr 09/18/21 09/18/21 09/18/21 22:45 23:00 23:15 Temperature Pulse Rate 107 H 107 H 109 H Respiratory 16 16 16 Rate Blood Pressure 108/51 114/52 114/54 O2 Sat by Pulse 97 97 97 Oximetry 09/18/21 09/18/21 09/19/21 23:30 23:45 00:00 Temperature 99.8 F H Pulse Rate 105 H 106 H 116 H Respiratory 16 16 14 Rate Blood Pressure 115/55 111/55 121/75 O2 Sat by Pulse 97 97 99 Oximetry 09/19/21 09/19/21 09/19/21 00:08 00:15 00:30 Temperature Pulse Rate 110 H 108 H 103 H Respiratory 16 16 Rate Blood Pressure 121/75 127/74 116/64 O2 Sat by Pulse 100 100 99 Oximetry 09/19/21 09/19/21 09/19/21 00:45 01:00 01:15 Temperature Pulse Rate 105 H 105 H 104 H Respiratory 21 16 16 Rate Blood Pressure 119/69 115/65 115/61 O2 Sat by Pulse 99 99 98 Oximetry 09/19/21 09/19/21 09/19/21 01:30 01:45 02:00 Temperature Pulse Rate 105 H 108 H 113 H Respiratory 16 18 17 Rate Blood Pressure 114/57 114/61 115/62 O2 Sat by Pulse 98 97 96 Oximetry 09/19/21 09/19/21 09/19/21 02:15 02:30 02:45 Temperature Pulse Rate 116 H 116 H 116 H Respiratory 13 13 19 Rate Blood Pressure 114/64 118/62 112/65 O2 Sat by Pulse 96 96 99 Oximetry 09/19/21 09/19/21 09/19/21 02:51 03:00 03:15 Temperature 102 F H Pulse Rate 108 H 104 H Respiratory 16 16 Rate Blood Pressure 119/68 115/63 O2 Sat by Pulse 99 98 Oximetry 09/19/21 09/19/21 09/19/21 03:30 03:45 04:00 Temperature 98.6 F Pulse Rate 106 H 107 H 103 H Respiratory 17 17 16 Rate Blood Pressure 110/58 112/64 109/61 O2 Sat by Pulse 98 98 99 Oximetry 09/19/21 09/19/21 09/19/21 04:15 04:30 04:38 Temperature Pulse Rate 106 H 103 H 105 H Respiratory 12 16 Rate Blood Pressure 111/60 118/59 118/59 O2 Sat by Pulse 99 98 98 Oximetry 09/19/21 09/19/21 09/19/21 04:45 05:00 05:15 Temperature Pulse Rate 106 H 106 H 102 H Respiratory 17 18 17 Rate Blood Pressure 118/71 122/73 128/71 O2 Sat by Pulse 97 98 97 Oximetry 09/19/21 09/19/21 09/19/21 05:30 05:45 06:00 Temperature 99.8 F H Pulse Rate 99 H 102 H 104 H Respiratory 16 16 15 Rate Blood Pressure 121/68 123/75 127/71 O2 Sat by Pulse 97 98 97 Oximetry 09/19/21 09/19/21 09/19/21 06:15 06:30 06:45 Temperature Pulse Rate 105 H 104 H 101 H Respiratory 14 17 11 L Rate Blood Pressure 107/67 107/67 113/72 O2 Sat by Pulse 98 98 100 Oximetry 09/19/21 09/19/21 09/19/21 07:00 07:15 07:30 Temperature Pulse Rate 103 H 116 H 103 H Respiratory 17 14 16 Rate Blood Pressure 121/73 129/78 134/77 O2 Sat by Pulse 100 98 100 Oximetry 09/19/21 09/19/21 09/19/21 07:45 08:00 08:15 Temperature 100.6 F H Pulse Rate 108 H 111 H 106 H Respiratory 16 18 11 L Rate Blood Pressure 137/80 139/74 144/80 O2 Sat by Pulse 100 100 100 Oximetry 09/19/21 09/19/21 09/19/21 08:30 08:45 08:55 Temperature Pulse Rate 103 H 105 H 99 H Respiratory 17 16 Rate Blood Pressure 135/79 142/83 140/81 O2 Sat by Pulse 100 99 98 Oximetry 09/19/21 09/19/21 09/19/21 09:00 09:04 09:15 Temperature Pulse Rate 100 H 96 H 104 H Respiratory 16 19 Rate Blood Pressure 140/81 140/81 142/79 O2 Sat by Pulse 98 98 99 Oximetry 09/19/21 09:30 Temperature Pulse Rate 102 H Respiratory 14 Rate Blood Pressure 152/76 O2 Sat by Pulse 100 Oximetry - General Apperance Constitutional: uncomfortable - EENT EENT: PERRL, mucous membranes moist - Respiratory Respiratory: lungs clear, rhonchi - Cardiovascular Cardiovascular: regular rate, normal S1, normal S2 Extremities: no peripheral edema bilat, no clubbing, cyanosis - Gastrointestinal Gastrointestinal: normoactive bowel sounds - Integumentary Integumentary: normal - Neurologic Cranial nerve examination: PERRL, EOMI, intact Speech examination: other (intubated) Detailed motor examination: grossly full strength in, other (not follow command , difficult to assess strength) - Laboratory Findings CBC and BMP: 09/19/21 04:44 09/19/21 04:44 Abnormal Lab Findings: Abnormal Labs 09/16/21 09/16/21 09/16/21 13:58 13:58 13:58 WBC 17.0 H Hgb RDW 13.1 L Plt Count Lymph % (Auto) 3.7 L [place] % (Auto) 7.6 H Lymph # (Auto) 0.6 L [place] # (Auto) 1.3 H Seg Neutrophils % 88.6 H Seg Neutrophils # 15.0 H D-Dimer ABG pH POC ABG pO2 ABG pO2 ABG HCO3 ABG Base Excess ABG Oxyhemoglobin ABG Chloride ABG Glucose Carboxyhemoglobin Sodium 149 H Chloride 108.9 H Carbon Dioxide 13 L BUN 44 H Creatinine 1.7 H Glucose POC Glucose Lactic Acid AST 66 H Ammonia 22.0 L Lactate Dehydrogenase Total Creatine Kinase 2443 H C-Reactive Protein Total Protein Albumin TSH Arterial Blood Glucose Arterial Blood Ionized Calcium Urine WBC (Auto) Salicylates Acetaminophen 09/16/21 09/16/21 09/16/21 13:58 13:58 13:58 WBC Hgb RDW Plt Count Lymph % (Auto) [place] % (Auto) Lymph # (Auto) [place] # (Auto) Seg Neutrophils % Seg Neutrophils # D-Dimer ABG pH POC ABG pO2 ABG pO2 ABG HCO3 ABG Base Excess ABG Oxyhemoglobin ABG Chloride ABG Glucose Carboxyhemoglobin Sodium Chloride Carbon Dioxide BUN Creatinine Glucose POC Glucose Lactic Acid AST Ammonia Lactate Dehydrogenase Total Creatine Kinase C-Reactive Protein Total Protein Albumin TSH 0.062 L Arterial Blood Glucose Arterial Blood Ionized Calcium Urine WBC (Auto) Salicylates < 0.3 L Acetaminophen 5.0 L 09/16/21 09/16/21 09/16/21 13:58 16:15 18:23 WBC Hgb RDW Plt Count Lymph % (Auto) [place] % (Auto) Lymph # (Auto) [place] # (Auto) Seg Neutrophils % Seg Neutrophils # D-Dimer 768.76 H ABG pH 7.311 L POC ABG pO2 ABG pO2 97.3 H ABG HCO3 16.8 L ABG Base Excess -8.4 L ABG Oxyhemoglobin ABG Chloride ABG Glucose Carboxyhemoglobin Sodium Chloride Carbon Dioxide BUN Creatinine Glucose POC Glucose Lactic Acid 2.20 H* AST Ammonia Lactate Dehydrogenase Total Creatine Kinase C-Reactive Protein Total Protein Albumin TSH Arterial Blood Glucose Arterial Blood Ionized Calcium Urine WBC (Auto) Salicylates Acetaminophen 09/16/21 09/17/21 09/17/21 18:23 05:36 23:29 WBC Hgb RDW Plt Count Lymph % (Auto) [place] % (Auto) Lymph # (Auto) [place] # (Auto) Seg Neutrophils % Seg Neutrophils # D-Dimer ABG pH POC ABG pO2 164.9 H ABG pO2 ABG HCO3 ABG Base Excess ABG Oxyhemoglobin 98.5 H ABG Chloride 112.0 H ABG Glucose 111 H Carboxyhemoglobin Sodium Chloride Carbon Dioxide BUN Creatinine Glucose POC Glucose Lactic Acid AST Ammonia Lactate Dehydrogenase 352 H Total Creatine Kinase C-Reactive Protein 11.00 H Total Protein Albumin TSH Arterial Blood Glucose 111 H Arterial Blood Ionized Calcium 4.5 L Urine WBC (Auto) 7.0 H Salicylates Acetaminophen 09/18/21 09/18/21 09/18/21 04:20 04:20 08:09 WBC Hgb RDW 13.1 L Plt Count 100 L Lymph % (Auto) 11.7 L [place] % (Auto) 7.8 H Lymph # (Auto) 0.9 L [place] # (Auto) Seg Neutrophils % 79.8 H Seg Neutrophils # D-Dimer ABG pH 7.453 H POC ABG pO2 144.0 H ABG pO2 ABG HCO3 ABG Base Excess ABG Oxyhemoglobin 98.5 H ABG Chloride 110.0 H ABG Glucose Carboxyhemoglobin 0.2 L Sodium 147 H Chloride 112.7 H Carbon Dioxide 21 L D BUN Creatinine 0.7 L D Glucose POC Glucose Lactic Acid AST Ammonia Lactate Dehydrogenase Total Creatine Kinase C-Reactive Protein Total Protein 5.8 L D Albumin 3.1 L TSH Arterial Blood Glucose Arterial Blood Ionized Calcium Urine WBC (Auto) Salicylates Acetaminophen 09/19/21 09/19/21 09/19/21 04:44 04:44 04:50 WBC Hgb 11.5 L RDW Plt Count 108 L Lymph % (Auto) [place] % (Auto) Lymph # (Auto) [place] # (Auto) Seg Neutrophils % Seg Neutrophils # D-Dimer ABG pH POC ABG pO2 ABG pO2 117.9 H ABG HCO3 ABG Base Excess ABG Oxyhemoglobin ABG Chloride ABG Glucose Carboxyhemoglobin Sodium Chloride 108.4 H Carbon Dioxide BUN Creatinine 0.7 L Glucose 123 H POC Glucose Lactic Acid AST Ammonia Lactate Dehydrogenase Total Creatine Kinase C-Reactive Protein Total Protein Albumin TSH Arterial Blood Glucose Arterial Blood Ionized Calcium Urine WBC (Auto) Salicylates Acetaminophen 09/19/21 05:36 WBC Hgb RDW Plt Count Lymph % (Auto) [place] % (Auto) Lymph # (Auto) [place] # (Auto) Seg Neutrophils % Seg Neutrophils # D-Dimer ABG pH POC ABG pO2 ABG pO2 ABG HCO3 ABG Base Excess ABG Oxyhemoglobin ABG Chloride ABG Glucose Carboxyhemoglobin Sodium Chloride Carbon Dioxide BUN Creatinine Glucose POC Glucose 111 H Lactic Acid AST Ammonia Lactate Dehydrogenase Total Creatine Kinase C-Reactive Protein Total Protein Albumin TSH Arterial Blood Glucose Arterial Blood Ionized Calcium Urine WBC (Auto) Salicylates Acetaminophen
[2021-09-19] MEDS: LACOSAMIDE 200 MG in SODIUM CHLORIDE 0.9% 100 ML IV SCH ×2 (10:48→22:25)
[2021-09-19 12:32] LABS: ABG Base Excess 1.1 mmol/L (-2.0-3.0); ABG HCO3 24.8 mmol/L (20.0-26.0); ABG Methemoglobin 0.7 % (0.0-1.5); ABG Oxygen Saturation 98.7 % (95.0-99.0); ABG PCO2 36.3 mm Hg; ABG PH 7.452 pH Units (7.350-7.450); ABG PO2 135.3 mm Hg (80.0-90.0)
--- NOTE | 2021-09-19 14:39 | Event Note ---
Date: 09/19/21 No seizuers off sedation. ABG good and tolerating PSV. Post ABG on PSV good. Extubate today. Can likely transfer in a few hours if bed is needed. COVID negative. Wean supplemental FiO2 as tolerated and then will likely sign off once out of unit.
--- NOTE | 2021-09-19 19:03 | Progress Note ---
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 -Intubated secondary to GCS and seizures for airway protection -Sedated with propofol -RASS goal 0 to -1 -Discontinued post extubation -Hold Versed drip and resume only if needed (witnessed seizure activity, hemodynamic instability from increased propofol drip)-> discontinued post next patient -Neuro consulted, appreciate recommendations -Loaded with Keppra in the ED -Currently on Keppra, Vimpat and Ativan as needed -Wrist restraints in place for safety -EEG pending -MRI pending -Aspiration/seizure precautions -SAT/SBT when appropriate -09/16 LP: CSF clear, colorless, WBC 26, RBC 33, 6 segmented neutrophils 99, monocytes 1%, glucose 70, negative for cryptococcal antigen and CSF no organisms Cardio: NAD -Blood pressure monitoring per protocol -Holding LR bolus which was ordered due to hypotension but improved after withholding sedation Respiratory: Intubated for airway protection, prior history of tracheostomy -Intubated in the emergency department 09/16 with a 7.50 ETT at 24 at the [facility] -[facility] consulted, appreciate recommendations -A.m. vent settings: Assist-control, rate 20, tidal volume 450, PEEP 6, FiO2 40% -P.m. ABG noted -Patient was extubated to room air 09/19 -Pulmonary hygiene GI: Protein calorie malnutrition, h/o PEG -Nutrition consult for tube feeding -BR: Senokot -PPI -24 hours +672 mL : Hypernatremia, hyperchloremia, metabolic acidosis, acute kidney injury secondary to vasomotor nephropathy (resolved) -admit creatinine 1.7 now normalized 0.7 -S/p IV fluids with half-normal saline -Hypernatremia and hyperchloremia likely caused by saline infusion -Free water flush per NTR -Avoid nephrotoxic medications -Trend BMP ID: NAD -CSF culture negative -Blood cultures x2 no growth to date -Monitor WBC and fever curve -COVID-19 PCR negative Heme: Leukocytosis (resolved) -Trend CBC -Transfuse hemoglobin less than 7 -SCD to bilateral lower extremity while in bed -Lovenox subcu Endo: NAD -Accu-Cheks every 6 -SSI if needed -Avoid hypoglycemia The high probability of a clinically significant, sudden or life threatening deterioration of the [multi] system(s) required my full and direct attention, intervention and personal management. The aggregate critical care time was [60] minutes. 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 While in route patient had seizures with EMS and was given 2 mg of Ativan which aborted the seizure. In the emergency department patient had multiple seizures which was aborted with 20 mg of Valium. Of note patient was recently seen in the emergency department on 09/10 for potential headache and CT head was negative and patient was discharged. In the emergency department he received multiple doses of Ativan and was loaded with Keppra. Patient oxygen saturations were 92% while on nonrebreather and was tachypneic with accessory muscle use but he was ultimately in intubated in the emergency department for airway protection. Hospital Course: 09/17/2021: Awaiting full neuro workup. MRI brain, EEG ordered. F/u neurology input. [facility] for vent management. 09/08: Patient was noted to be posturing overnight and repeat CT head and stat EEG was ordered. Repeat CT head showed no acute findings. This morning Keppra was increased. Versed drip was initiated overnight which was turned off this morning for evaluation of neuro status. RN instructed to increase propofol and not resume Versed. Resume Versed if witnessed seizure activity or if increasing propofol needs to hemodynamic instability. Right upper extremity restraint was placed. 09/19: Patient was extubated today. Patient will be transferred to floor today given no seizure activity noted after extubation. Patient failed bedside swallow and will feeding tube discontinued during extubation and patient failed bedside swallow evaluation. ST evaluation ordered. Patient will remain on IV fluids until tube feeding resumed or cleared by speech for diet. MRI brain was discontinued by the radiology department due to inability to obtain consent as family was not found. business operations manager contacted family today. We will reorder MRI brain as screening can be completed. Hospitalist Physical - Physical exam Narrative exam: General appearance: Present: no acute distress, well-nourished, cranial abnormality - EENT Eyes: JN today d/t pt fighting ENT: clear oral mucosa, dentition normal - Neck Neck: Present: normal ROM - Respiratory Respiratory effort: normal Respiratory: bilateral: diminished - Cardiovascular Rhythm: regular Heart Sounds: Present: S1 & S2. Absent: systolic murmur, diastolic murmur - Extremities Extremities: no ischemia, pulses intact, pulses symmetrical, No edema, normal temperature, normal color Peripheral Pulses: within normal limits - Abdominal General gastrointestinal: soft, non-tender, non-distended - Integumentary Integumentary: Present: warm, dry - Psychiatric Psychiatric: other - Neurologic Neurologic: other (Sedated, pupil 3/4, pupils not reactive to light, moves right upper extremity once off sedation) - Constitutional Vitals: Temp Pulse Resp BP Pulse Ox 98.5 F 100 H 15 142/86 100 09/19/21 16:00 09/19/21 12:00 09/19/21 12:00 09/19/21 12:00 09/19/21 12:59 General appearance: Present: no acute distress, well-nourished HEART Score - HEART Score Troponin: Troponin T < 0.010 ng/mL (0.00-0.029) 09/16/21 13:58 Results - Labs CBC & Chem 7: 09/19/21 04:44 09/19/21 04:44 Labs: Laboratory Last Values WBC 4.7 K/mm3 (4.5-11.0) 09/19/21 04:44 RBC 3.84 M/mm3 (3.65-5.03) 09/19/21 04:44 Hgb 11.5 gm/dl (11.8-15.2) L 09/19/21 04:44 Hct 35.8 % (35.5-45.6) 09/19/21 04:44 MCV 93 fl (84-94) 09/19/21 04:44 MCH 30 pg (28-32) 09/19/21 04:44 MCHC 32 % (32-34) 09/19/21 04:44 RDW 13.3 % (13.2-15.2) 09/19/21 04:44 Plt Count 108 K/mm3 (140-440) L 09/19/21 04:44 Lymph % (Auto) 11.7 % (13.4-35.0) L 09/18/21 04:20 [place] % (Auto) 7.8 % (0.0-7.3) H 09/18/21 04:20 Eos % (Auto) 0.5 % (0.0-4.3) 09/18/21 04:20 Baso % (Auto) 0.2 % (0.0-1.8) 09/18/21 04:20 Lymph # (Auto) 0.9 K/mm3 (1.2-5.4) L 09/18/21 04:20 [place] # (Auto) 0.6 K/mm3 (0.0-0.8) 09/18/21 04:20 Eos # (Auto) 0.0 K/mm3 (0.0-0.4) 09/18/21 04:20 Baso # (Auto) 0.0 K/mm3 (0.0-0.1) 09/18/21 04:20 Seg Neutrophils % 79.8 % (40.0-70.0) H 09/18/21 04:20 Seg Neutrophils # 5.9 K/mm3 (1.8-7.7) 09/18/21 04:20 D-Dimer 768.76 ng/mlDDU (0-234) H 09/16/21 18:23 ABG pH 7.452 pH Units (7.350-7.450) H 09/19/21 12:20 POC ABG pCO2 32.0 mmHg (32.0-48.0) 09/18/21 08:09 ABG pCO2 36.3 mm Hg 09/19/21 12:20 POC ABG pO2 144.0 mmHg (83-108) H 09/18/21 08:09 ABG pO2 135.3 mm Hg (80.0-90.0) H 09/19/21 12:20 POC ABG HCO3 21.9 09/18/21 08:09 ABG HCO3 24.8 mmol/L (20.0-26.0) 09/19/21 12:20 ABG O2 Saturation 98.7 % (95.0-99.0) 09/19/21 12:20 ABG O2 Content 15.5 (0.0-44) 09/19/21 12:20 POC ABG Base Excess -1.3 09/18/21 08:09 ABG Base Excess 1.1 mmol/L (-2.0-3.0) 09/19/21 12:20 ABG Hemoglobin 11.3 gm/dl (14.0-18.0) L 09/19/21 12:20 ABG Oxyhemoglobin 98.5 (94-98) H 09/18/21 08:09 ABG Carboxyhemoglobin 1.4 % (0.0-5.0) 09/19/21 12:20 ABG Methemoglobin 0.7 % (0.0-1.5) 09/19/21 12:20 ABG Sodium 141.6 mmol/L (136.0-145.0) 09/18/21 08:09 ABG Potassium 3.8 mmol/L (3.40-4.50) 09/18/21 08:09 ABG Chloride 110.0 mmol/L (98-107) H 09/18/21 08:09 ABG Glucose 91 mg/dL (65-95) 09/18/21 08:09 Oxyhemoglobin 96.6 % (95.0-99.0) 09/19/21 12:20 Carboxyhemoglobin 0.2 (0.5-1.5) L 09/18/21 08:09 FiO2 30 % 09/19/21 12:20 FiO2 % 40 09/18/21 08:09 Sodium 143 mmol/L (137-145) 09/19/21 04:44 Potassium 3.7 mmol/L (3.6-5.0) 09/19/21 04:44 Chloride 108.4 mmol/L (98-107) H 09/19/21 04:44 Carbon Dioxide 24 mmol/L (22-30) 09/19/21 04:44 Anion Gap 14 mmol/L 09/19/21 04:44 BUN 11 mg/dL (9-20) 09/19/21 04:44 Creatinine 0.7 mg/dL (0.8-1.3) L 09/19/21 04:44 Estimated GFR > 60 ml/min 09/19/21 04:44 BUN/Creatinine Ratio 16 % 09/19/21 04:44 Glucose 123 mg/dL (75-100) H 09/19/21 04:44 POC Glucose 82 mg/dL (70-105) 09/19/21 17:19 Lactic Acid 1.50 mmol/L (0.7-2.0) 09/16/21 17:47 Calcium 8.6 mg/dL (8.4-10.2) 09/19/21 04:44 Ferritin 230.4 ng/mL (30.0-300.0) 09/16/21 18:23 Total Bilirubin 0.60 mg/dL (0.1-1.2) 09/18/21 04:20 AST 24 units/L (5-40) 09/18/21 04:20 ALT 20 units/L (7-56) 09/18/21 04:20 Alkaline Phosphatase 54 units/L (35-129) 09/18/21 04:20 Ammonia 22.0 umol/L (25-60) L 09/16/21 13:58 Lactate Dehydrogenase 352 units/L (91-180) H 09/16/21 18:23 Total Creatine Kinase 2443 units/L (55-170) H 09/16/21 13:58 Troponin T < 0.010 ng/mL (0.00-0.029) 09/16/21 13:58 C-Reactive Protein 11.00 mg/dL (0.00-1.30) H 09/16/21 18:23 Total Protein 5.8 g/dL (6.3-8.2) L D 09/18/21 04:20 Albumin 3.1 g/dL (3.9-5) L 09/18/21 04:20 Albumin/Globulin Ratio 1.1 % 09/18/21 04:20 Procalcitonin 1.44 ng/mL (<0.15) 09/18/21 04:20 TSH 0.062 mlU/mL (0.270-4.200) L 09/16/21 13:58 Free T4 1.19 ng/dL (0.76-1.46) 09/16/21 17:47 Arterial Blood Glucose 91 mg/dL (65-95) 09/18/21 08:09 Arterial Blood Ionized Calcium 4.8 mg/dL (4.6-5.3) 09/18/21 08:09 Urine Color Yellow (Yellow) 09/17/21 23: Urine Turbidity Cloudy (Clear) 09/17/21 23: Urine pH 5.0 (5.0-7.0) 09/17/21 23:29 Ur Specific [place] 1.028 (1.003-1.030) 09/17/21 23: Urine Protein 30 mg/dl mg/dL (Negative) 09/17/21 23: Urine Glucose (UA) Neg mg/dL (Negative) 09/17/21 23: Urine Ketones 20 mg/dL (Negative) 09/17/21 23: Urine Blood Neg (Negative) 09/17/21 23: Urine Nitrite Neg (Negative) 09/17/21 23: Urine Bilirubin Neg (Negative) 09/17/21 23: Urine Urobilinogen < 2.0 mg/dL (<2.0) 09/17/21 23: Ur Leukocyte Esterase Neg (Negative) 09/17/21 23: Urine WBC (Auto) 7.0 /HPF (0.0-6.0) H 09/17/21 23: Urine RBC (Auto) 3.0 /HPF (0.0-6.0) 09/17/21 23: Urine Mucus Few /HPF 09/17/21 23: Urine Yeast (Budding) 2+ /HPF 09/17/21 23:29 CSF Appearance Clear 09/16/21 16:15 CSF Color Colorless 09/16/21 16:15 CSF WBC 26 /mm3 (1-10) 09/16/21 16:15 CSF RBC 33 /mm3 (0-0) 09/16/21 16:15 CSF Seg Neutrophils 99.0 % (0-6) 09/16/21 16:15 CSF Monocytes % 1.0 % (15-45) 09/16/21 16:15 CSF Pathologist Review C 09/16/21 16:15 CSF Glucose 70 mg/dL 09/16/21 16:15 Salicylates < 0.3 mg/dL (2.8-20.0) L 09/16/21 13:58 Urine Opiates Screen Presumptive negative 09/17/21 23:29 Urine Methadone Screen Presumptive negative 09/17/21 23:29 Acetaminophen 5.0 ug/mL (10.0-30.0) L 09/16/21 13:58 Ur Barbiturates Screen Presumptive negative 09/17/21 23:29 Ur Phencyclidine Scrn Presumptive negative 09/17/21 23:29 Ur Amphetamines Screen Presumptive negative 09/17/21 23:29 U Benzodiazepines Scrn Presumptive negative 09/17/21 23:29 Urine Cocaine Screen Presumptive negative 09/17/21 23:29 U Marijuana (THC) Screen Presumptive positive 09/17/21 23:29 Drugs of Abuse Note Disclamer 09/17/21 23:29 Plasma/Serum Alcohol < 0.01 % (0-0.07) 09/16/21 13:58 Coronavirus (PCR) Negative (Negative) 09/16/21 00:00 Microbiology: Microbiology 09/16/21 13:23 Tracheal Aspirate Sputum Culture - Preliminary 09/16/21 13:58 Peripheral/Venous Blood Culture - Preliminary NO GROWTH AFTER 72 HOURS 09/16/21 13:58 Peripheral/Venous Blood Culture - Final Coag Negative Staphylococcus Hook/IV: Voiding Method Indwelling Catheter Active Medications - Current Medications Current Medications: Generic Name Dose Route Start Last Admin Trade Name Freq PRN Reason Stop Dose Admin Acetaminophen 650 mg 09/16/21 21:00 09/16/21 21:00 Acetaminophen 650 Mg Rect Supp ND 650 mg Q4H PRN Administration Pain, Mild (1-3) Acetaminophen 650 mg 09/16/21 22:57 09/19/21 02:51 Acetaminophen 325 Mg Tab PO 650 mg Q4H PRN Administration Pain MILD(1-3)/Fever >100.5/CELESTE Lipase/Protease/Amylase 1 each 09/18/21 11:34 Lipase 10,500/Protease 25,000/Amylase 43,750 (Units) Dr Márquez FEEDTUBE PRN PRN For Clogged Feeding Tube Famotidine 20 mg 09/16/21 22:00 09/19/21 09:48 Famotidine 20 Mg/2 Ml Inj IV 20 mg BID EPIFANIO Administration Heparin Sodium (Porcine) 5,000 unit 09/16/21 23:00 09/19/21 09:48 Heparin 5,000 Unit/1 Ml Vial SUB-Q 5,000 unit Q12HR EPIFANIO Administration Hydrophilic Ointment 1 applic 09/16/21 13:23 Lip Therapy Vaseline TP Q2HR PRN Dry Lips Propofol 1,000 mg in 100 mls @ 2.449 mls/hr 09/16/21 14:00 09/19/21 08:45 Diprivan 10 Mg/Ml IV 0 mcg/kg/min TITR EPIFANIO 0 mls/hr Titration Protocol 5 MCG/KG/MIN Lacosamide 200 mg/ Sodium 120 mls @ 100 mls/hr 09/16/21 23:45 09/19/21 10:48 Chloride IV 100 mls/hr Q12HR EPIFANIO Administration Midazolam HCl 100 mg/ Sodium 100 mls @ 1 mls/hr 09/18/21 03:21 09/18/21 13:30 Chloride IV 0 mg/hr TITR EPIFANIO 0 mls/hr Titration Protocol 1 MG/HR Levetiracetam 1,500 mg/ 115 mls @ 400 mls/hr 09/18/21 10:00 09/19/21 09:48 Dextrose IV 400 mls/hr Q12HR EPIFANIO Administration Lorazepam 2 mg 09/18/21 02:25 09/18/21 02:20 Lorazepam 2 Mg/Ml Vial IV 2 mg Q4H PRN Administration seizure Metoclopramide HCl 5 mg 09/16/21 22:57 Metoclopramide 10 Mg/2 Ml Inj IV Q6H PRN Nausea And Vomiting Midazolam HCl 2 mg 09/18/21 03:20 09/18/21 04:59 Midazolam 2 Mg/2 Ml Inj IV 2 mg Q10MIN PRN Administration Sedation Morphine Sulfate 2 mg 09/16/21 22:57 Morphine 2 Mg/1 Ml Inj IV Q4H PRN Pain, Moderate (4-6) Multi-Ingred Cream/Lotion/Oil/Oint 1 applic 09/16/21 13:23 Mineral Oil/Petrolatum, White Ophth Oint 3.5 Gm OU Q4HR PRN Dry Eye(s) Ondansetron HCl 4 mg 09/16/21 22:57 Ondansetron 4 Mg/2 Ml Inj IV Q8H PRN Nausea And Vomiting Senna/Docusate Sodium 1 tab 09/16/21 22:00 09/19/21 09:49 Sennosides/Docusate Sodium 8.6/50 Mg Tab FEEDTUBE 1 tab BID EPIFANIO Administration Simple Syrup 15 ml 09/18/21 11:34 Simple Syrup 15 Ml FEEDTUBE PRN PRN Hypoglycemia Simple Syrup 30 ml 09/18/21 11:34 Simple Syrup 15 Ml FEEDTUBE PRN PRN Hypoglycemia Sodium Bicarbonate 325 mg 09/18/21 11:34 Sodium Bicarbonate 325 Mg Tab FEEDTUBE PRN PRN For Clogged Feeding Tube Sodium Chloride 10 ml 09/16/21 23:00 09/19/21 10:49 Sodium Chloride 0.9% 10 Ml Flush Syringe IV 10 ml BID EPIFANIO Administration Sodium Chloride 10 ml 09/16/21 22:57 Sodium Chloride 0.9% 10 Ml Flush Syringe IV PRN PRN LINE FLUSH Nutrition/Malnutrition Assess - Dietary Evaluation Nutrition/Malnutrition Findings: Nutrition Notes Start: 09/18/21 11:06 Freq: Status: Active Protocol: Document 09/18/21 11:06 PRINCESS (Rec: 09/18/21 11:37 PRINCESS [id number]) Nutrition Notes Need for Assessment generated from: MD Order,MST Initial or Follow up Assessment Current Diagnosis Acute Kidney Injury Other Pertinent Diagnosis Acute encephalopathy, Epilepsy , Hypernatremia, Leukocytosis, Asthma. Current Diet TF-Vital AF 1.2 Vignesh @ 50 ml/hr (since L 09/18). Labs/Tests 09/18: Na 147, Cl 112.7, CO2 21, Crea 0.7. Pertinent Medications 09/18: Propofol 1000mg in 100 ml @ 2.449 ml/hr (65 Kcal), others nutritionally unremarkable. 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 Weight Status Appropriate Subjective/Other Information RD consult for risk of malnutrition assessment, and write/manage TF. Pt sedated and intubated. 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 No signs of concern for risk of malnutrition at the time, according to Physical Assessment History notes. Percent of energy/protein needs met: Prescribed Vital AF 1.2 Vignesh @ 50 ml/hr provides for energy/ protein needs (1,449 Kcal/91 g ) during LOS, 100% Kcal; 100% AA. Burn Absent Trauma Absent GI Symptoms None Food Allergy No Skin Integrity/Comment Clear, warm, dry. Current % PO Other Minimum of two criteria No #1 Nutrition Diagnosis Inadequate oral intake Etiology Pt on mechanical ventilation. As Evidenced by Signs and Symptoms Pt currently on NPO. Is patient on ventilator? Yes Is Patient Ambulatory and/or Out of Bed No REE-([facility]-confined to bed) 1782.384 Kcal/Kg value to use for calculation 23 Approximate Energy Requirements Using 1449 kcal/Kg Calculation Used for Recommendations Kcal/kg Additional Notes Protein: 1.2-2 g/Kg; 76-126 g/ day. Fluids: 1 ml/Kcal, or as per MD. Nutrition Intervention Nutrition Support: Start Vital AF 1.2 Vignesh @ 50 ml /hr. Flush: 80 ml water Q 4 hr, or as per MD. Kcal 1,449 Protein (gm) 91 Carbohydrates (gm) 134 Fat (gm) 65 Fluid (mL) 979 Fiber (gm) 6 % RDI: 100% Kcal; 100% AA. Goal #1 Provide at least 75% of energy /protein needs through Enteral Feeding during LOS. Follow-Up By: 09/20/21 Additional Comments Continue monitoring TF tolerance and BM.
[2021-09-19] MEDS ORDERED: SODIUM CHLORIDE 0.9% 1000 ML 1,000 ML IV SCH (21:37)
[2021-09-20] MEDS: HEPARIN 5,000 UNIT/1 ML VIAL SUB-Q SCH ×2 (10:21→22:23)
[2021-09-20] MEDS: FAMOTIDINE 20 MG/2 ML INJ IV SCH ×2 (10:21→22:23)
[2021-09-20] MEDS: SENNOSIDES/DOCUSATE SODIUM 8.6/50 MG TAB FEEDTUBE SCH ×3 (10:22→22:23)
[2021-09-20] MEDS: levETIRAcetam 1,500 MG in DEXTROSE 5% IN WATER 100 ML IV SCH ×2 (10:22→22:22)
[2021-09-20] MEDS: LACOSAMIDE 200 MG in SODIUM CHLORIDE 0.9% 100 ML IV SCH (10:51)
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
[2021-09-20] MEDS: LACOSAMIDE 100 MG in SODIUM CHLORIDE 0.9% 100 ML IV SCH (22:22)
[2021-09-21 06:08] LABS: Basophils % (Auto) 0.4 % (0.0-1.8); Eosinophils # (Auto) 0.4 K/mm3 (0.0-0.4); Eosinophils % (Auto) 6.2 % (0.0-4.3); Hematocrit 39.4 % (35.5-45.6); Hemoglobin 12.9 gm/dl (11.8-15.2); Lymphocytes % (Auto) 15.9 % (13.4-35.0); Mean Corpuscular HGB Conc 33 % (32-34); Mean Corpuscular Volume 91 fl (84-94); Monocytes # (Auto) 0.7 K/mm3 (0.0-0.8); Monocytes % (Auto) 10.9 % (0.0-7.3); Platelet Count 164 K/mm3 (140-440); Red Blood Count 4.31 M/mm3 (3.65-5.03); Red Cell Distribution Width 12.7 % (13.2-15.2)
[2021-09-21 06:23] LABS: Alanine Aminotransferase 23 units/L (7-56); Albumin 3.2 g/dL (3.9-5); Blood Urea Nitrogen 10 mg/dL (9-20); Calcium 8.8 mg/dL (8.4-10.2); Hemolysis Index 3
[2021-09-21 06:24] LABS: BUN/Creatinine Ratio 17
[2021-09-21] MEDS: levETIRAcetam 1,500 MG in DEXTROSE 5% IN WATER 100 ML IV SCH ×2 (11:31→21:49)
[2021-09-21] MEDS: LACOSAMIDE 100 MG in SODIUM CHLORIDE 0.9% 100 ML IV SCH ×2 (11:31→22:11)
[2021-09-21] MEDS: HEPARIN 5,000 UNIT/1 ML VIAL SUB-Q SCH ×2 (11:32→21:49)
[2021-09-21] MEDS: FAMOTIDINE 20 MG/2 ML INJ IV SCH ×2 (11:32→21:49)
[2021-09-21] MEDS: SENNOSIDES/DOCUSATE SODIUM 8.6/50 MG TAB FEEDTUBE SCH ×2 (11:32→21:49)
[2021-09-21] MEDS: D5W/0.45% NACL/KCL 10 MEQ 10 MEQ/1,000 ML BAG IV SCH (11:33)
--- NOTE | 2021-09-21 22:54 | Progress Note ---
Assessment and Plan - Patient Problems (1) Acute encephalopathy Current Visit: Yes Status: Acute Plan to address problem: Secondary to seizures and a low Glascow coma scale Patient intubated Started on IV Keppra and IV Vimpat and Ativan intermittently (2) Status epilepticus Current Visit: Yes Status: Acute Plan to address problem: Patient started on IV Keppra, IV Vimpat and IV Ativan Neurology consult requested (3) Hypernatremia Current Visit: Yes Status: Acute Plan to address problem: IV fluids at half-normal saline for now (4) KEE (acute kidney injury) Current Visit: Yes Status: Acute Plan to address problem: Secondary to dehydration and vasomotor nephropathy IV fluids initiated (5) Leukocytosis Current Visit: Yes Status: Acute Qualifiers: Leukocytosis type: unspecified Qualified Code(s): D72.829 - Elevated white blood cell count, unspecified Plan to address problem: Demargination On ceftriaxone empirically No signs of meningitis (6) DVT prophylaxis Current Visit: Yes Status: Acute Plan to address problem: On anticoagulation GI prophylaxis (7) Advance care planning Current Visit: Yes Status: Acute (8) Advance care planning Current Visit: Yes Status: Acute Plan to address problem: Patient is full code Because of the patient's condition and no family available disease education could not be conducted care plan could not be discussed diagnosis could not be discussed prognosis could not be discussed. We will try to reach family members regarding and regarding understanding and agreement with care plan. Subjective Date of service: 09/21/21 Principal diagnosis: recurrent seizure, controlled since in hospital Interval history: 41-year-old -[place] male presents to the emergency department after witnessed seizures. In the emergency room patient had multiple seizures. Patient was given 20 mg of Valium in the emergency.. Patient had seizures in with EMS administered 2 mg of Ativan. In the emergency department patient was evaluated multiple seizures because her legs patient was intubated for protection of airway. Patient was seen suggestive of potential headache. And was discharged. Patient had previous tracheostomy and PEG tube. No fever or chills. He received multiple doses of 2 mg of Ativan and a gram of Keppra in the emergency room. Oxygen saturations remained at 92% while on nonrebreather and patient was also tachypneic and accessory musc and low Darlene Coma Scale scale. P. Atient was intubated for protection of airway. Patient was sedated with propofol Hospital Course: 09/17/2021: Awaiting full neuro workup. MRI brain, EEG ordered. F/u neurology input. [facility] for vent management. 09/08: Patient was noted to be posturing overnight and repeat CT head and stat EEG was ordered. Repeat CT head showed no acute findings. This morning Keppra was increased. Versed drip was initiated overnight which was turned off this morning for evaluation of neuro status. RN instructed to increase propofol and not resume Versed. Resume Versed if witnessed seizure activity or if increasing propofol needs to hemodynamic instability. Right upper extremity restraint was placed. 09/19: Patient was extubated today. Patient will be transferred to floor today given no seizure activity noted after extubation. Patient failed bedside swallow and will feeding tube discontinued during extubation and patient failed bedside swallow evaluation. ST evaluation ordered. Patient will remain on IV fluids until tube feeding resumed or cleared by speech for diet. MRI brain was discontinued by the radiology department due to inability to obtain consent as family was not found. operations research manager contacted family today. We will reorder MRI brain as screening can be completed. 09/20/2021 No further seizures reported since moved out of ICU to floor it is awake somewhat sluggish, answers questions appropriately. Fever is resolving. Objective - Constitutional Vitals: Vital Signs - 12hr 09/21/21 09/21/21 15:34 19:35 Temperature 97.8 F 98.6 F Pulse Rate 81 88 Respiratory 16 16 Rate Blood Pressure 122/67 114/65 O2 Sat by Pulse 100 98 Oximetry General appearance: Present: no acute distress, well-nourished - EENT Eyes: PERRL, EOM intact ENT: hearing intact, clear oral mucosa Ears: bilateral: normal - Neck Neck: supple, normal ROM - Respiratory Respiratory effort: normal Respiratory: bilateral: CTA - Breasts Breasts: normal - Cardiovascular Heart rate: 78 Rhythm: regular Heart Sounds: Present: S1 & S2. Absent: gallop, rub Extremities: pulses intact, No edema, normal color, Full ROM - Gastrointestinal General gastrointestinal: Present: soft, non-tender, non-distended, normal bowel sounds - Genitourinary Male genitourinary: normal - Integumentary Integumentary: clear, warm, dry - Musculoskeletal Musculoskeletal: strength equal bilaterally, generalized weakness - Neurologic Neurologic: moves all extremities - Psychiatric Psychiatric: memory intact, appropriate mood/affect, intact judgment & insight - Labs CBC & Chem 7: 09/22/21 04:18 09/22/21 04:18 Labs: Abnormal lab results 09/21/21 09/21/21 Range/Units 05:27 05:27 RDW 12.7 L (13.2-15.2) % [place] % (Auto) 10.9 H (0.0-7.3) % Eos % (Auto) 6.2 H (0.0-4.3) % Lymph # (Auto) 1.0 L (1.2-5.4) K/mm3 Potassium 3.4 L (3.6-5.0) mmol/L Creatinine 0.6 L (0.8-1.3) mg/dL Albumin 3.2 L (3.9-5) g/dL HEART Score - HEART Score Troponin: Troponin T < 0.010 ng/mL (0.00-0.029) 09/16/21 13:58
[2021-09-22 06:23] LABS: Basophils % (Auto) 0.4 % (0.0-1.8); Eosinophils # (Auto) 0.2 K/mm3 (0.0-0.4); Eosinophils % (Auto) 4.1 % (0.0-4.3); Hematocrit 37.1 % (35.5-45.6); Hemoglobin 12.2 gm/dl (11.8-15.2); Lymphocytes # (Auto) 1.1 K/mm3 (1.2-5.4); Mean Corpuscular HGB Conc 33 % (32-34); Mean Corpuscular Volume 92 fl (84-94); Monocytes # (Auto) 0.5 K/mm3 (0.0-0.8); Monocytes % (Auto) 9.1 % (0.0-7.3); Platelet Count 186 K/mm3 (140-440); Red Blood Count 4.04 M/mm3 (3.65-5.03); Red Cell Distribution Width 12.7 % (13.2-15.2)
[2021-09-22 06:48] LABS: Alanine Aminotransferase 31 units/L (7-56); Albumin 3.1 g/dL (3.9-5); Blood Urea Nitrogen 7 mg/dL (9-20); Calcium 8.6 mg/dL (8.4-10.2); Hemolysis Index 2
[2021-09-22 06:49] LABS: BUN/Creatinine Ratio 12
[2021-09-22] MEDS: D5W/0.45% NACL/KCL 10 MEQ 10 MEQ/1,000 ML BAG IV SCH ×2 (08:27→12:07)
[2021-09-22] MEDS: LACOSAMIDE 100 MG in SODIUM CHLORIDE 0.9% 100 ML IV SCH ×2 (12:06→21:41)
[2021-09-22] MEDS: levETIRAcetam 1,500 MG in DEXTROSE 5% IN WATER 100 ML IV SCH ×2 (12:06→23:13)
[2021-09-22] MEDS: SENNOSIDES/DOCUSATE SODIUM 8.6/50 MG TAB FEEDTUBE SCH ×2 (12:08→21:39)
[2021-09-22] MEDS: FAMOTIDINE 20 MG/2 ML INJ IV SCH ×2 (12:08→21:40)
[2021-09-22] MEDS: HEPARIN 5,000 UNIT/1 ML VIAL SUB-Q SCH ×2 (12:08→21:40)
--- NOTE | 2021-09-22 13:43 | Discharge Summary ---
Providers - Providers Date of Admission: 09/16/21 15:39 Date of discharge: 09/22/21 Attending physician: RODNEY CHUN 09/16/21 22:57 Consult to Physician [CONS] Routine Comment: Consulting Provider: WENDY RIVAS Physician Instructions: Reason For Exam: Status epilepticus 09/18/21 09:27 Consult to Dietitian/Nutrition [CONS] Routine Physician Instructions: Reason For Exam: Reason for Consult: Write/Manage Tube Feeding 09/19/21 16:03 Speech Therapy Evaluation and Treat [CONS] Routine Reason For Exam: post extubation Primary care physician: CHEMICAL TEST ENGINEER Hospitalization Condition: Critical Hospital course: Subjective Date of service: 09/22/21 Principal diagnosis: recurrent seizure, controlled since in hospital Interval history: 41-year-old -Stateless male presents to the emergency department after witnessed seizures. In the emergency room patient had multiple seizures. Patient was given 20 mg of Valium in the emergency.. Patient had seizures in with EMS administered 2 mg of Ativan. In the emergency department patient was e valuated multiple seizures because her legs patient was intubated for protection of airway. Patient was seen suggestive of potential headache. And was discharged. Patient had previous tracheostomy and PEG tube. No fever or chills. He received multiple doses of 2 mg of Ativan and a gram of Keppra in the emergency room. Oxygen saturations remained at 92% while on nonrebreather and patient was also tachypneic and accessory musc and low Darlene Coma Scale scale. P. Atient was intubated for protection of airway. Patient was sedated with propofol Hospital Course: 09/17/2021: Awaiting full neuro workup. MRI brain, EEG ordered. F/u neurology input. [facility] for vent management. 09/08: Patient was noted to be posturing overnight and repeat CT head and stat EEG was ordered. Repeat CT head showed no acute findings. This morning Keppra was increased. Versed drip was initiated overnight which was turned off this morning for evaluation of neuro status. RN instructed to increase propofol and not resume Versed. Resume Versed if witnessed seizure activity or if increasing propofol needs to hemodynamic instability. Right upper extremity restraint was placed. 09/19: Patient was extubated today. Patient will be transferred to floor today given no seizure activity noted after extubation. Patient failed bedside swallow and will feeding tube discontinued during extubation and patient failed bedside swallow evaluation. ST evaluation ordered. Patient will remain on IV fluids until tube feeding resumed or cleared by speech for diet. MRI brain was discontinued by the radiology department due to inability to obtain consent as family was not found. print traffic manager contacted family today. We will reorder MRI brain as screening can be completed. 09/20/2021 No further seizures reported since moved out of ICU to floor it is awake somewhat sluggish, answers questions appropriately. Fever is resolving. 09/21/2021 Patient is more alert and oriented Patient is ready to go home Will discharge him today or tomorrow Is no physical therapy 09/22/2021 Vimpat tapered off Continue Keppra 1500 mg twice daily Assessment and Plan - Patient Problems (1) Acute encephalopathy Current Visit: Yes Status: Acute Plan to address problem: Improved (2) Status epilepticus Current Visit: Yes Status: Acute Plan to address problem: Continue oral Keppra (3) Hypernatremia Current Visit: Yes Status: Acute Plan to address problem: Improved (4) KEE (acute kidney injury) Current Visit: Yes Status: Acute Plan to address problem: Improved (5) Leukocytosis Current Visit: Yes Status: Acute Qualifiers: Leukocytosis type: unspecified Qualified Code(s): D72.829 - Elevated white blood cell count, unspecified Plan to address problem: Demargination Improved (6) DVT prophylaxis Current Visit: Yes Status: Acute Plan to address problem: On anticoagulation GI prophylaxis (7) Advance care planning Current Visit: Yes Status: Acute (8) Advance care planning Current Visit: Yes Status: Acute Plan to address problem: Patient is full code Disease education conducted, discussed prognosis.. Discussed change of medications. Discussed prognosis. Patient is in agreement with care plan +30 minutes. Disposition: 01 HOME / SELF CARE / HOMELESS Final Discharge Diagnosis (Prints w/discharge instructions): Acute encephalopathy. Status epilepticus. Hyponatremia. KEE. Leukocytosis Time spent for discharge: 35 minutes - Discharge Diagnoses (1) Acute encephalopathy Status: Acute (2) Status epilepticus Status: Acute (3) Hypernatremia Status: Acute (4) KEE (acute kidney injury) Status: Acute (5) Leukocytosis Status: Acute Qualifiers: Leukocytosis type: unspecified Qualified Code(s): D72.829 - Elevated white blood cell count, unspecified (6) DVT prophylaxis Status: Acute (7) Advance care planning Status: Acute (8) Advance care planning Status: Acute Core Measure Documentation - Palliative Care Palliative Care/ Comfort Measures: Not Applicable - Core Measures Any of the following diagnoses?: none Exam - Constitutional Vitals: Temp Pulse Resp BP Pulse Ox 98.8 F 90 16 114/59 98 09/22/21 08:39 09/22/21 08:39 09/22/21 04:09 09/22/21 08:39 09/22/21 04:09 General appearance: Present: no acute distress, well-nourished - EENT Eyes: Present: PERRL ENT: hearing intact, clear oral mucosa - Neck Neck: Present: supple, normal ROM - Respiratory Respiratory effort: normal Respiratory: bilateral: CTA - Cardiovascular Heart rate: 78 Rhythm: regular Heart Sounds: Present: S1 & S2. Absent: rub, click - Extremities Extremities: pulses symmetrical, No edema Peripheral Pulses: within normal limits - Abdominal General gastrointestinal: Present: soft, non-tender, non-distended, normal bowel sounds Male genitourinary: Present: normal - Integumentary Integumentary: Present: clear, warm, dry - Musculoskeletal Musculoskeletal: gait normal, strength equal bilaterally - Psychiatric Psychiatric: appropriate mood/affect, intact judgment & insight - Neurologic Neurologic: CNII-XII intact, moves all extremities Plan Activity: no restrictions Diet: regular Follow up with: MARITA SOTELO MD [Primary Care Provider] - 7 Days MONICA REAL MD [Referring] - 7 Days
[2021-09-23 12:07] VITALS: BP 106/56
[2021-09-23] MEDS: HEPARIN 5,000 UNIT/1 ML VIAL SUB-Q SCH (12:27)
[2021-09-23] MEDS: FAMOTIDINE 20 MG/2 ML INJ IV SCH (12:27)
[2021-09-23] MEDS: LACOSAMIDE 100 MG in SODIUM CHLORIDE 0.9% 100 ML IV SCH (12:27)
[2021-09-23] MEDS: SENNOSIDES/DOCUSATE SODIUM 8.6/50 MG TAB FEEDTUBE SCH (12:29)
[2021-09-23] MEDS: levETIRAcetam 1,500 MG in DEXTROSE 5% IN WATER 100 ML IV SCH (12:51)
== END 2021-09-23 15:40 | disposition home or self-care (01) | DRG 208 ==
LOC: ED 12:50 → CC1 15:39 → 4A 09-19 20:41
PROVIDERS: ADMIT Internal Medicine; ATTEND Internal Medicine
PROC: 06HY33Z Insertion of Infusion Device into Lower Vein, Percutaneous Approach (ICD-10-PCS; principal; 2021-09-16)
PROC: 009U3ZX Drainage of Spinal Canal, Percutaneous Approach, Diagnostic (ICD-10-PCS; 2021-09-16)
PROC: 5A1945Z Respiratory Ventilation, 24-96 Consecutive Hours (ICD-10-PCS; 2021-09-16)
PROC: 4A033R1 Measurement of Arterial Saturation, Peripheral, Percutaneous Approach (ICD-10-PCS; 2021-09-16)
PROC: 0BH17EZ Insertion of Endotracheal Airway into Trachea, Via Natural or Artificial Opening (ICD-10-PCS; 2021-09-16)
DX: J96.00 Acute respiratory failure, unspecified whether with hypoxia or hypercapnia (principal); N17.0 Acute kidney failure with tubular necrosis; R65.10 Systemic inflammatory response syndrome (SIRS) of non-infectious origin without acute organ dysfunction; N17.9 Acute kidney failure, unspecified; E87.0 Hyperosmolality and hypernatremia; E87.2 Acidosis; E46 Unspecified protein-calorie malnutrition; G40.901 Epilepsy, unspecified, not intractable, with status epilepticus; Z20.822 Contact with and (suspected) exposure to COVID-19; J45.909 Unspecified asthma, uncomplicated; Z82.49 Family history of ischemic heart disease and other diseases of the circulatory system; F20.9 Schizophrenia, unspecified; E87.8 Other disorders of electrolyte and fluid balance, not elsewhere classified; Z68.23 Body mass index [BMI] 23.0-23.9, adult
CPT/HCPCS: 36415; 36600; 70450; 70486; 71045; 72125; 74018; 80048; 80053; 80307; 80320; 81001; 82140; 82550; 82728; 82803; 82805; 82947; 82962; 83615; 84145; 84439; 84443; 84484; 85025; 85027; 85379; 86140; 86403; 87040; 87070; 87116; 87205; 89051; 93005; 94002; 94003; G0378; J3480; J3490; J7060; Q0162; C9254; G0480; J0330; J0696; J1644; J1953; J2060; J2250; J2704; J3370; J7030; J7040; Q2009; U0003